=== PATIENT | male | born 2000 | race Caucasian/White ===

== ENCOUNTER 2020-04-19 22:45 | Emergency (ER) | payer OTHER ==
--- NOTE | 2020-04-19 23:15 | ED Physician Documentation ---
PD HPI LOWER EXT INJURY - Stated complaint Stated Complaint: RT ANKLE PX - Chief complaint Chief Complaint: Trauma Ext - History obtained from History obtained from: Patient, Family - History of Present Illness PD HPI LOW EXT INJURY LOCATION: Right, Ankle Type of injury: Twist Where injury occurred: Home Timing - onset: Today Timing - duration: Minutes Timing - details: Abrupt onset, Still present Improved by: Rest, Immobilization Worsened by: Moving, Palpating Associated symptoms: Swelling. No: Weakness, Numbness Contributing factors: No: Anticoagulated Similar symptoms before: Has not had sx before Recently seen: Not recently seen - Additional information Additional information: Previously well 19-year-old male was jumping on trampoline when he twisted his right ankle. He had a knee inversion injury and has a lot of swelling on the lateral aspect of his ankle. He felt a pop when this happened. He is able to bear weight on this somewhat. He has not sprained his ankle previously Review of Systems Constitutional: denies: Fever Eyes: denies: Decreased vision Ears: denies: Ear pain Nose: denies: Congestion Throat: denies: Sore throat Respiratory: denies: Cough GI: denies: Vomiting PD PAST MEDICAL HISTORY - Past Medical History Past Medical History: Yes Endocrine/Autoimmune: Type 1 diabetes Psych: ADD/ADHD - Past Surgical History Past Surgical History: No - Present Medications Home Medications: Ambulatory Orders Medication Instructions Recorded Confirmed Insulin Lispro [Humalog] 0 unit SQ 09/09/13 12/20/14 Azithromycin 250 mg PO DAILY #6 tablet 12/20/14 - Allergies Allergies/Adverse Reactions: Allergies Allergy/AdvReac Type Severity Reaction Status Date / Time No Known Drug Allergies Allergy Verified 04/19/20 22:49 - Social History Does the pt smoke?: No Smoking Status: Never smoker Does the pt drink ETOH?: No Does the pt have substance abuse?: No - Immunizations Immunizations are current?: Yes - POLST Patient has POLST: No PD ED PE NORMAL - Vitals Vital signs reviewed: Yes (normal ) - General General: Alert and oriented X 3, No acute distress, Well developed/nourished - HEENT HEENT: Atraumatic, PERRL, EOMI - Respiratory Respiratory: No respiratory distress - Derm Derm: Normal color, Warm and dry, No rash - Extremities Extremities: Other (There is swelling point tenderness to the lateral aspect of the ankle over the talofibular ligament.) - Neuro Neuro: Alert and oriented X 3, director data analytics 2-12 intact, No motor deficit, No sensory deficit, Normal speech Eye Opening: Spontaneous Motor: Obeys Commands Verbal: Oriented GCS Score: 15 Results - Vitals Vitals: Vital Signs - 24 hr 04/19/20 22:49 Temperature 36.5 C Heart Rate 67 Respiratory 16 Rate O2 Saturation 99 Oxygen O2 Source Room air PD MEDICAL DECISION MAKING - ED course Complexity details: reviewed results, re-evaluated patient, considered differential, d/w patient, d/w family ED course: 19-year-old male with a sprain of the right ankle a lot of swelling laterally is placed into an Aircast and instructed to wear / for 2 weeks . Departure - Departure Disposition: 01 Home, Self Care Clinical Impression: Ankle sprain Qualifiers: Encounter type: initial encounter Involved ligament of ankle: calcaneofibular ligament Laterality: right Qualified Code(s): S93.411A - Sprain of calcaneofibular ligament of right ankle, initial encounter Condition: Stable Instructions: ED Sprain Ankle W X Ray Follow-Up: GEORGIANA EDWARDS MD [Primary Care Provider] - Forms: Activity restrictions
--- NOTE | 2020-04-20 08:25 | XRAY Report ---
PROCEDURE: Ankle 3 View RT INDICATIONS: lateral pain swelling twisted TECHNIQUE: 3 views of the ankle were acquired. COMPARISON: None FINDINGS: Bones: No fractures or dislocations. Ankle mortise is normally aligned. No suspicious bony lesions . Soft tissues: There is a moderate tibiotalar joint effusion. Achilles tendon appears normal. Signif icant lateral ankle soft tissue swelling is noted. IMPRESSION: 1. No acute ankle fracture or dislocation. 2. Lateral ankle soft tissue swelling and moderate tibiofibular joint effusion. No discrepancies. Reviewed by: Jonny Rodriguez MD on 04/20/2020 8:24 AM PDT Approved by: Jonny Rodriguez MD on 04/20/2020 8:24 AM PDT Station ID: [id number]
== END 2020-04-20 00:03 | disposition home or self-care (01) ==
LOC: ED 22:45
DX: S93.411A Sprain of calcaneofibular ligament of right ankle, initial encounter (principal); X50.1XXA Overexertion from prolonged static or awkward postures, initial encounter; Y93.44 Activity, trampolining; Y92.009 Unspecified place in unspecified non-institutional (private) residence as the place of occurrence of the external cause; E10.9 Type 1 diabetes mellitus without complications
CPT/HCPCS: 99282; 99283

== ENCOUNTER 2023-01-17 08:18 | Outpatient (CLI) | payer MEDICAID | END 2023-01-17 23:59 | disposition critical access hospital (66) | LOC: EMS 08:18 | DX: R10.84 Generalized abdominal pain (principal); R14.0 Abdominal distension (gaseous); E10.65 Type 1 diabetes mellitus with hyperglycemia; R00.0 Tachycardia, unspecified | CPT/HCPCS: A0425; A0427; A0999 ==

== ENCOUNTER 2023-01-17 08:37 | Inpatient (IN) | payer MEDICAID, OTHER ==
[2023-01-17] MEDS ORDERED: INSULIN REGULAR HUMAN 100 UNIT/1 ML 10 ML MDV IVP STA (08:46)
[2023-01-17] MEDS ORDERED: HYDROmorphone 1 MG/ML CARPUJECT IVP STA ×3 (08:46→13:01)
[2023-01-17] MEDS ORDERED: ONDANSETRON 4 MG/2 ML VIAL IVP STA (08:46)
[2023-01-17] MEDS ORDERED: SODIUM CHLORIDE 0.9% 1,000 ML IV STA ×4 (08:46→13:01)
[2023-01-17 09:00] LABS: BASOPHILS # (AUTO) 0.2 10^3/uL (0.0-0.1); BASOPHILS % (AUTO) 0.9 %; EOSINOPHILS % (AUTO) 0.1 %; HCT - HEMATOCRIT 48.8 % (42.0-52.0); HGB - HEMOGLOBIN 16.1 g/dL (14.0-18.0); LYMPHOCYTES # (AUTO) 3.3 10^3/uL (1.5-3.5); LYMPHOCYTES % (AUTO) 16.6 %; MEAN CORPUSCULAR HEMOGLOBIN 29.7 pg (27.0-31.0); MEAN CORPUSCULAR VOLUME 89.9 fL (80.0-94.0); MONOCYTES # (AUTO) 1.2 10^3/uL (0.0-1.0); MONOCYTES % (AUTO) 5.8 %; NEUTROPHILS # (AUTO) 14.9 10^3/uL (1.5-6.6); NEUTROPHILS % (AUTO) 75.1 %; PLT - PLATELET COUNT 422 10^3/uL (130-450); RED BLOOD COUNT 5.43 10^6/uL (4.70-6.10); RED CELL DISTRIBUTION WIDTH 13.4 % (12.0-15.0); WHITE BLOOD COUNT 19.8 x10^3/uL (4.8-10.8)
[2023-01-17 09:05] LABS: VBG BASE EXCESS -25.1 mmol/L (-2 - +2); VBG HCO3 4.6 mmol/L (23-28); VBG PCO2 19.2 mmHg (41-51); VBG PO2 82.4 mmHg (25-47); VBG TOTAL CO2 5.2 mmol/L (24-29)
[2023-01-17 09:06] LABS: VBG OXYGEN SATURATION 93.3 % (60-80)
[2023-01-17 09:17] LABS: KETONES, SERUM (ACETEST) NEGATIVE (NEGATIVE)
[2023-01-17 09:18] LABS: ALBUMIN 4.7 g/dL (3.2-5.5); ALBUMIN/GLOBULIN RATIO 1.4 (1.0-2.2); ALKALINE PHOSPHATASE 127 IU/L (42-121); ALT ALANINE AMINOTRANSFERASE 21 IU/L (10-60); AST ASPARTATE AMINOTRANSFERASE 16 IU/L (10-42); BILIRUBIN,TOTAL 2.1 mg/dL (0.2-1.0); BUN - BLOOD UREA NITROGEN 14 mg/dL (6-20); CALCIUM 8.9 mg/dL (8.5-10.3); CHLORIDE 101 mmol/L (101-111); CREATININE 1.6 mg/dL (0.6-1.2); GFR - MDRD 54 (>89); LIPASE 21 U/L (22-51); POTASSIUM 4.2 mmol/L (3.5-5.0); SODIUM 139 mmol/L (135-145)
[2023-01-17 09:22] LABS: CARBON DIOXIDE - CO2 < 6 mmol/L (21-32); GLUCOSE 549 mg/dL (70-100)
[2023-01-17] MEDS ORDERED: INSULIN REGULAR IN 0.9 % NS 100 UNIT/100 ML BAG IV STA (09:30)
--- NOTE | 2023-01-17 09:34 | ED Physician Documentation ---
History of Present Illness - Stated complaint Stated Complaint: ABD PX/CONSTIPATION - Chief complaint Chief Complaint: General - History obtained from History obtained from: Patient, EMS - Additonal information Additional information: The patient is brought to the emergency department by EMS for chief complaint of generally feeling unwell. He states that he has felt unwell for about a week and has thought he might be in DKA. He states that he has felt nauseated and as though he is "not absorbing his fluid intake". He has been rationing his insulin, he states, because he does not have insurance and does not want to Run out. He states his blood sugars have been running very high at home he is also noticed that his breathing is faster and his stomach just feels upset. No other complaints at this time. No fevers. PD PAST MEDICAL HISTORY - Past Medical History Past Medical History: Yes Endocrine/Autoimmune: Type 1 diabetes Psych: ADD/ADHD - Past Surgical History Past Surgical History: No - Present Medications Home Medications: Ambulatory Orders Medication Instructions Recorded Confirmed Insulin Aspart [Novolog Flexpen] 60 unit SQ DAILY 01/17/23 01/17/23 Insulin Detemir [Levemir Flexpen] 50 unit SQ HS 01/17/23 01/17/23 - Allergies Allergies/Adverse Reactions: Allergies Allergy/AdvReac Type Severity Reaction Status Date / Time No Known Drug Allergies Allergy Verified 01/17/23 08:49 - Social History Does the pt smoke?: No Smoking Status: Never smoker Does the pt drink ETOH?: No Does the pt have substance abuse?: No - Immunizations Immunizations are current?: Yes - POLST Patient has POLST: No PD ED PE NORMAL - Vitals Vital signs reviewed: Yes - General General: Alert and oriented X 3, Well developed/nourished, Other (The patient appears anxious and is exhibiting supply coordinator small respirations, as well.) - HEENT HEENT: Atraumatic, PERRL, EOMI, Moist mucous membranes - Neck Neck: Supple, no meningeal sign - Cardiac Cardiac: No murmur, Strong equal pulses, Other (Tachycardic rate regular rhythm) - Respiratory Respiratory: Clear bilaterally, Other (Deep, rapid respirations, consistent with supply coordinator small.) - Abdomen Abdomen: Soft, Non tender, Non distended - Derm Derm: Normal color, Warm and dry, No rash - Extremities Extremities: No deformity, No edema - Neuro Neuro: Alert and oriented X 3, Other (Alert and conversant, grossly intact.) - Psych Psych: Normal mood, Normal affect Results - Vitals Vitals: Oxygen O2 Source Room air - EKG (time done) 0904 EKG releavant findings:: EKG personally interpreted by author of this note. Relevant findings are: Rate: Rate (enter#) (122) Rhythm: Sinus tachycardia, LAE Wilson: Normal Intervals: Normal [place] QRS: Normal Ischemia: Normal ST segments Compare to prior EKG: Old EKG unavailable Computer interpretation: Agree with computer - Labs Labs: Laboratory Tests 01/17/23 01/17/23 01/17/23 08:47 08:47 08:47 WBC 19.8 H RBC 5.43 Hgb 16.1 Hct 48.8 MCV 89.9 MCH 29.7 MCHC 33.0 RDW 13.4 Plt Count 422 MPV 11.0 Neut # (Auto) 14.9 H Lymph # (Auto) 3.3 [place] # (Auto) 1.2 H Eos # (Auto) 0.0 Baso # (Auto) 0.2 H Absolute Nucleated RBC 0.00 Nucleated RBC % 0.0 VBG pH VBG pCO2 VBG pO2 VBG HCO3 VBG Total CO2 VBG O2 Saturation VBG Base Excess Sodium 139 Potassium 4.2 Chloride 101 Carbon Dioxide < 6 L* Anion Gap 33.0 H BUN 14 Creatinine 1.6 H Estimated GFR (MDRD) 54 L Glucose 549 H* Lactic Acid 6.3 H* Calcium 8.9 Total Bilirubin 2.1 H AST 16 ALT 21 Alkaline Phosphatase 127 H Total Protein 8.0 Albumin 4.7 Globulin 3.3 Albumin/Globulin Ratio 1.4 Lipase 21 L Serum Ketones NEGATIVE 01/17/23 01/17/23 08:47 11:16 WBC RBC Hgb Hct MCV MCH MCHC RDW Plt Count MPV Neut # (Auto) Lymph # (Auto) [place] # (Auto) Eos # (Auto) Baso # (Auto) Absolute Nucleated RBC Nucleated RBC % VBG pH 7.000 L VBG pCO2 19.2 L VBG pO2 82.4 H VBG HCO3 4.6 L VBG Total CO2 5.2 L VBG O2 Saturation 93.3 H VBG Base Excess -25.1 L Sodium 140 Potassium 4.1 Chloride 108 Carbon Dioxide 7 L* Anion Gap 25.0 H BUN 13 Creatinine 1.3 H Estimated GFR (MDRD) 68 L Glucose 376 H Lactic Acid Calcium 7.9 L Total Bilirubin AST ALT Alkaline Phosphatase Total Protein Albumin Globulin Albumin/Globulin Ratio Lipase Serum Ketones PD Medical Decision Making - ED course Complexity details: reviewed results, re-evaluated patient, considered differential, d/w patient ED course: The patient was immediately started on 2 L of IV fluid and given an IV bolus of insulin. He was worked up with laboratory studies, Including CBC, ER abdominal panel, VBG, and lactic acid level. All of these were ordered and reviewed by me. His lactate was 6.3 glucose 549, pH 7.0, bicarb less than 6. Anion gap was 33. He was started on an insulin drip at a rate of 0.1 mg/kg/h. I discussed the case with Dr. Vieyra, who is on-call for hospitalist service, and she did agree to accept the patient for admission. The patient's repeat BMP did show his glucose coming down and anion gap narrowing. - Critical Care Time(min): 40 Comments: Critical care was necessary, secondary to high probability of imminent and life- threatening decline, secondary to severe metabolic and acid-base derangement and hyperglycemia. Time Includes: Direct patient care, Review records, Reassess patient, Document care, Coordinate care, Medical consult, See progress note Data interpretation: Labs, Pulse ox, ABG, Cardiac output, See progress note Departure - Departure Disposition: 66 [facility] DC/Xfer Clinical Impression: Hyperglycemia, High anion gap metabolic acidosis Condition: Critical Discharge Date/Time: 01/17/23 14:45
[2023-01-17] MEDS ORDERED: iohexoL-300 100 ML VIAL ONE (10:21)
--- NOTE | 2023-01-17 11:06 | CT Report ---
PROCEDURE: ABDOMEN/PELVIS W INDICATIONS: abd pain/nausea/sepsis CONTRAST: 100ml Omnipaque 300 TECHNIQUE: After the administration of IV contrast, 5 mm thick sections acquired from the diaphragms to the symp hysis. 5 mm thick coronal and sagittal reformats were acquired. For radiation dose reduction, the f ollowing was used: automated exposure control, adjustment of mA and/or kV according to patient size. COMPARISON: None. FINDINGS: Image quality: Excellent. ABDOMEN: Lung bases: Lung bases are clear. Heart size is normal. Solid organs: Liver and spleen are normal in size. Moderate hepatic steatosis is seen, no discrete h epatic lesion. No discrete splenic lesion. Gallbladder is within normal limits. Biliary system is no n dilated. Pancreas enhances normally. No adrenal nodules. Kidneys demonstrate normal size and enh ancement, without hydronephrosis. Peritoneum and bowel: There is no bowel obstruction. Retrocecal appendix is noted and is normal in si ze and appearance.. No gastric wall thickening. Distal ileal wall thickening is seen extending to the ileocecal junction with mild adjacent mesenteric fat stranding. No gross colonic wall thickening. No abscess collection. No free fluid of free air. Nodes and vessels: Small lymph nodes are seen in lower abdominal mesentery measures up to 4 to 5 mm in size and. No retroperitoneal or mesenteric adenopathy by size criteria. Aorta and inferior vena c vielka are normal in size. Miscellaneous: Wall umbilical hernia is seen containing fat only. PELVIS: Genitourinary: Bladder wall thickness is normal. Miscellaneous: No inguinal hernias or adenopathy. Bones: No suspicious bony lesions. No vertebral body compression fractures. IMPRESSION: 1. Mild terminal ileal wall thickening concerning for low-grade infectious or inflammatory ileitis. N ormal appendix. No bowel obstruction. No abscess collection. No free fluid of free air. 2. Small lower abdominal mesenteric lymph nodes which can be seen associated with mesenteric adenitis suggest clinical correlation. 3. Moderate hepatic steatosis, no discrete hepatic lesion. Reviewed by: Jonny Rodriguez MD on 01/17/2023 10:05 AM EDGAR Approved by: Jonny Rodriguez MD on 01/17/2023 10:05 AM AKKENDRICK Station ID: [id number]
[2023-01-17 11:35] LABS: CALCIUM 7.9 mg/dL (8.5-10.3); CREATININE 1.3 mg/dL (0.6-1.2); POTASSIUM 4.1 mmol/L (3.5-5.0)
[2023-01-17] MEDS ORDERED: INSULIN REGULAR HUMAN 100 UNIT/1 ML 10 ML MDV SUBQ ONE (14:16)
[2023-01-17] MEDS ORDERED: iohexoL-300 100 ML VIAL IVP ONE (14:31)
--- NOTE | 2023-01-17 14:47 | HISTORY & PHYSICAL EXAMINATION ---
Chief Complaint - Chief Complaint Chief Complaint: Abd pain, nausea, fatigue History of Present Illness - Admitted From Admitted From:: ED - History Obtained From History obtained from: ED provider, the patient and the patient's mother at bedside - History of Present Illness HPI Comment/Other: This is a 22-year-old white male with a history of ADHD, who was weaned off his ADHD meds in his late teens, and has type 1 diabetes diagnosed at age 8. The patient has been trying to stretch out what insulin he has at home so that he does not run out, since his family lost their Health Insurance and he was waiting to start a job and have his own health insurance. Over the last 1-2 weeks he started to notice increased urination along with upper and R-sided abdominal pain and some nausea no vomiting and then he lost his appetite and was constipated, and himself was worried that he was starting to go into DKA. His abd pain felt worse today than the previous week and called an ambulance and was brought to the ER. He was found to be in DKA with a serum pH of 7.0, elevated lactic acid of 6.4, elevated anion gap of 33, and elevated glucose of 549. He was started on iv saline and an insulin drip. He underwent a CT of the abdomen which shows ileitis. The ED provider spoke to me regarding managing this young man going forward. The patient is being admitted to the ICU to manage DKA and ileitis. History - Past Medical History Cardiovascular: reports: None Respiratory: reports: None Neuro: reports: None Endocrine/Autoimmune: reports: Type 1 diabetes GI: reports: None : reports: None HEENT: reports: None Psych: reports: ADD/ADHD Musculoskeletal: reports: None Derm: reports: None MRSA Hx?: No - Family & Social History Family History: Mother: Alive and Well, Father: Alive and Well, Sister: Alive and Well Family History Comment/Other: He is the youngest of 3 children, his 2 older sisters do not have diabetes. Diabetes runs on the father side of the family. Living arrangement: At home Living Situation: With family Social History Notes: He has never smoked cigarettes, he has tried marijuana but does not use it routinely. He has a rare alcoholic drink. He lives with both parents and his great aunt and his 4 nieces (both of his older sisters have each had 2 children but the pt's mother is raising all 4 young girls). He has not had a job in about 3 years. 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 - Substance History Use: Uses substance without health or social issues: NONE - POLST Patient has POLST: No Meds/Allgy - Home Medications Home Medications: Ambulatory Orders Medication Instructions Recorded Confirmed Insulin Lispro [Humalog] 0 unit SQ 09/09/13 12/20/14 Azithromycin 250 mg PO DAILY #6 tablet 12/20/14 - Allergies Allergies/Adverse Reactions: Allergies Allergy/AdvReac Type Severity Reaction Status Date / Time No Known Drug Allergies Allergy Verified 01/17/23 08:49 Review of Systems - Constitutional Constitutional: reports: Fatigue, Chills, Poor appetite - Gastrointestinal Gastrointestinal: reports: Abdominal pain, Constipation, Nausea, Reflux/heartburn - Endocrine Endocrine: reports: Polyuria - All Other Systems All Other Systems: reports: Reviewed and negative Exam - Vital Signs Vital Signs: Vital Signs x48h Temp Pulse Resp BP Pulse Ox 01/17/23 14:30 118 H 24 109/69 98 01/17/23 13:30 123 H 22 125/74 99 01/17/23 13:00 123 H 24 132/81 H 100 01/17/23 12:30 126 H 23 128/80 99 01/17/23 12:00 121 H 24 135/90 H 99 01/17/23 11:30 125 H 16 123/79 100 01/17/23 11:04 152 H 28 H 140/79 H 99 01/17/23 10:49 138 H 35 H 141/77 H 98 01/17/23 10:16 130 H 29 H 131/77 H 100 01/17/23 09:33 126 H 22 125/68 100 01/17/23 09:00 123 H 35 H 149/60 H 97 01/17/23 08:43 36.8 C 145 H 28 H 149/80 H 96 - Physical Exam General Appearance: positive: No acute distress, Alert Eyes Bilateral: positive: EOMI, Other (Wide set eyes) ENT: positive: No signs of dehydration Neck: positive: Nml inspection, No JVD Respiratory: positive: No respiratory distress, Breath sounds nml Cardiovascular: positive: Regular rate & rhythm, No murmur Abdomen: positive: Non-tender, Nml bowel sounds, No distention Skin: positive: Warm, Dry Extremities: positive: Non-tender, No pedal edema Neurologic/Psychiatric: positive: Oriented x3, Motor nml Conclusion/Plan - Problem List (1) DKA (diabetic ketoacidosis) Conclusion/Plan: The lower doses of Insulin (done to ration his meds) plus the finding of ileitis, are likely to be the reasons he went into DKA Plan: Admit to the ICU Start DKA protocol including Insulin drip, iv saline hydration and frequent serum checks of his pH, glucose, serum ketones. (2) Ileitis Conclusion/Plan: He does have an elevated white count of 19.8. He does describe right-sided symptoms worsening slowly over the past 1 to 2 weeks. Plan: We will obtain blood culture Follow WBC daily Start empiric treatment with IV Cipro and IV Flagyl Obtain general surgery consultation further recommendations (3) Patient's noncompliance with other medical treatment and regimen due to financial hardship Conclusion/Plan: Patient admitted and mother at bedside supported that this patient was rationing his insulin in order to stretch it out until he had a job with health insurance that would pay part of the cost of insulin Plan: We will update social work, since the patient would like to apply for [facility] - Lab Results Fish Bones: 01/17/23 08:47 01/17/23 15:30 - Diagnostic Imaging Results Diagnostic Imaging Results: positive: Final report reviewed - Other Other Results/Comments: Attestation: The patient is expected to be discharged or transferred to another facility within 96 hours: Yes.
[2023-01-17 14:51] LABS: VBG BASE EXCESS -22.8 mmol/L (-2 - +2); VBG HCO3 5.9 mmol/L (23-28); VBG OXYGEN SATURATION 85.6 % (60-80); VBG PCO2 21.3 mmHg (41-51); VBG PO2 52.3 mmHg (25-47); VBG TOTAL CO2 6.5 mmol/L (24-29)
[2023-01-17 14:52] LABS: VBG PH 7.059 (7.31-7.41)
[2023-01-17] MEDS ORDERED: SODIUM CHLORIDE 0.9% 1,000 ML IV SCH (15:00)
[2023-01-17] MEDS ORDERED: metroNIDAZOLE 500 MG/100 ML 500 MG/100 ML BAG IV SCH (15:00)
[2023-01-17] MEDS ORDERED: INSULIN REGULAR IN 0.9 % NS 100 UNIT/100 ML BAG IV SCH (15:00)
[2023-01-17 15:02] LABS: BUN - BLOOD UREA NITROGEN 11 mg/dL (6-20); CALCIUM 8.2 mg/dL (8.5-10.3); CARBON DIOXIDE - CO2 6 mmol/L (21-32); CHLORIDE 115 mmol/L (101-111); CREATININE 1.2 mg/dL (0.6-1.2); GFR - MDRD 75 (>89); GLUCOSE 204 mg/dL (70-100); MAGNESIUM 2.5 mg/dL (1.7-2.8); SODIUM 142 mmol/L (135-145)
[2023-01-17 15:03] LABS: KETONES, SERUM (ACETEST) MODERATE (NEGATIVE)
[2023-01-17] MEDS: DEXTROSE 5%-0.9% NACL 1,000 ML IV SCH (15:28)
[2023-01-17 15:44] LABS: KETONES, SERUM (ACETEST) MODERATE (NEGATIVE)
[2023-01-17 15:45] LABS: BUN - BLOOD UREA NITROGEN 10 mg/dL (6-20); CALCIUM 8.2 mg/dL (8.5-10.3); CHLORIDE 115 mmol/L (101-111); CREATININE 1.2 mg/dL (0.6-1.2); GFR - MDRD 75 (>89); GLUCOSE 154 mg/dL (70-100); MAGNESIUM 2.6 mg/dL (1.7-2.8); POTASSIUM 3.8 mmol/L (3.5-5.0); SODIUM 140 mmol/L (135-145)
[2023-01-17 15:46] LABS: CARBON DIOXIDE - CO2 6 mmol/L (21-32)
[2023-01-17] MEDS: CIPROFLOXACIN 400 MG/200 ML 400 MG/200 ML BAG IV SCH (15:51)
[2023-01-17] MEDS: SODIUM CHLORIDE FLUSH 0.9% 10 ML SYRINGE IVP SCH (15:57)
[2023-01-17] MEDS: metroNIDAZOLE 500 MG/100 ML 500 MG/100 ML BAG IV SCH ×2 (16:58→23:08)
[2023-01-17] MEDS: INSULIN REGULAR HUMAN 100 UNIT in SODIUM CHLORIDE 0.9% 100ML 99 ML IV SCH (17:00)
[2023-01-17] MEDS: POTASSIUM CHLOR 10 MEQ/100 ML 10 MEQ/100 ML BAG IV SCH ×2 (17:15→18:07)
--- NOTE | 2023-01-17 17:23 | PHARMACY PROGRESS NOTE ---
- Best Possible Medication History Admit Date and Time: 01/17/23 1411 Processed by: Pharmacy Medication History completed: Yes Patient Interview: Completed Secondary Source(s): Other family member, Insurance records (Interviewed pt while mother was in the room. Pt has been on the keto diet for the past couple of months. He only eats either breakfast or dinner. Levemir prescription is for 50 units HS, but he uses 25-35 depending on how he feels. When he eats then 5-10 units of the Novolog Flexpen. Prior to that ) As the person ultimately responsible for medication therapy, providers are able to order a medication from an existing home medication list in [facility] via the "Reconcile Routine" prior to Confirmation of that medication by cad application support specialist. Such practice is discouraged except when the physician, in their clinical judgment, deems that a medical need exists for a medication without regard to previous use.
[2023-01-17 17:45] LABS: KETONES, SERUM (ACETEST) LARGE (NEGATIVE)
[2023-01-17 17:50] LABS: BUN - BLOOD UREA NITROGEN 9 mg/dL (6-20); CALCIUM 8.3 mg/dL (8.5-10.3); CHLORIDE 113 mmol/L (101-111); CREATININE 1.2 mg/dL (0.6-1.2); GFR - MDRD 75 (>89); GLUCOSE 146 mg/dL (70-100); MAGNESIUM 2.3 mg/dL (1.7-2.8); POTASSIUM 3.7 mmol/L (3.5-5.0); SODIUM 140 mmol/L (135-145)
[2023-01-17 17:54] LABS: CARBON DIOXIDE - CO2 8 mmol/L (21-32)
--- NOTE | 2023-01-17 18:12 | CONSULTATION NOTE ---
Surgery Consult - Admit Date Hospital Admission Date: 01/17/23 - Consult Date Consult Date: 01/17/23 Requesting Provider: Dr. Catie Vieyra - Chief Complaint Chief Complaint: Asked to evaluate ileitis seen on CT scan. - Home Meds/Allergies Home Medications: Patient History Medication Instructions Recorded Confirmed Insulin Aspart [Novolog Flexpen] 60 unit SQ DAILY 01/17/23 01/17/23 Insulin Detemir [Levemir Flexpen] 50 unit SQ HS 01/17/23 01/17/23 Allergies/Adverse Reactions: Allergies Allergy/AdvReac Type Severity Reaction Status Date / Time No Known Drug Allergies Allergy Verified 01/17/23 08:49 - Vital Signs Vital Signs: Last Vital Signs Temp 98.7 C H 01/17/23 15:37 Pulse 100 01/17/23 18:00 Resp 19 01/17/23 18:00 BP 119/76 01/17/23 18:00 Pulse Ox 98 01/17/23 18:00 O2 Flow Rate Intake & Output: Intake & Output 01/14/23 01/15/23 01/16/23 01/17/23 23:59 23:59 23:59 23:59 Intake Total 4400.000 Output Total 550 Balance 3850.000 - Lab Results Result Diagrams: 01/17/23 08:47 01/17/23 17:33 - Consultation Note Consultation Note: I was asked to evaluate this patient for ileitis seen on CT scan. He as admitted ostensibly for DKA and CT scan showed some terminal ileitis with sparing of the appendix. I reviewed the CT scan as well as the patient's labs and vitals. On physical examination he has no abdominal pain whatsoever. Plan: There are no indications for surgical intervention. This should resolve with time and tight control of his sugars (good evidence that sugars over 200 severly impee the function of the WBCs. I asked the patient to let me know if ther are any changes in his symptoms and to contact me with any surgical questions or concerns. He stated that he would. I will follow peripherally in case surgical issues arise but I think the patient will chart continued improvement. Thank you very much for the opportunity to participate in this gentleman's care.
[2023-01-17 18:14] LABS: BILIRUBIN,URINE NEGATIVE (NEGATIVE); GLUCOSE, URINE (UA) NEGATIVE (NEGATIVE); KETONES,URINE (UA) >=80 mg/dL (NEGATIVE); LEUKOCYTE ESTERASE, URINE NEGATIVE (NEGATIVE); NITRITE,URINE NEGATIVE (NEGATIVE); OCCULT BLOOD,URINE SMALL (NEGATIVE); PH,URINE 5.5 PH (5.0-7.5); PROTEIN,URINE TRACE mg/dL (NEGATIVE); UROBILINOGEN,URINE 0.2 (NORMAL) E.U./dL (NORMAL)
[2023-01-17 18:16] LABS: CLARITY,URINE CLEAR (CLEAR)
[2023-01-17 18:23] LABS: BACTERIA,URINE Rare /HPF (None Seen); CASTS, URINE 0-2 Hyaline Casts /LPF; MUCUS,URINE Few Strands; RBC,URINE 0-5 /HPF (0-5); SQUAMOUS EPITHELIAL CELL,UR RARE Squamous (<= Few); WBC,URINE 0-3 /HPF (0-3)
[2023-01-17 19:50] LABS: VBG BASE EXCESS -14.6 mmol/L (-2 - +2); VBG HCO3 10.4 mmol/L (23-28); VBG OXYGEN SATURATION 96.5 % (60-80); VBG PCO2 23.8 mmHg (41-51); VBG PH 7.259 (7.31-7.41); VBG PO2 78.4 mmHg (25-47); VBG TOTAL CO2 11.1 mmol/L (24-29)
[2023-01-17] MEDS: FAMOTIDINE 20 MG/2 ML VIAL IVP SCH (21:15)
[2023-01-17 22:58] LABS: CALCIUM 8.3 mg/dL (8.5-10.3); CREATININE 0.9 mg/dL (0.6-1.2); POTASSIUM 3.6 mmol/L (3.5-5.0)
[2023-01-18] MEDS: POTASSIUM CHLOR 10 MEQ/100 ML 10 MEQ/100 ML BAG IV SCH ×8 (00:51→23:15)
[2023-01-18] MEDS: SODIUM CHLORIDE FLUSH 0.9% 10 ML SYRINGE IVP SCH ×3 (00:52→16:57)
[2023-01-18] MEDS: DEXTROSE 5%-0.9% NACL 1,000 ML IV SCH ×3 (01:40→21:11)
[2023-01-18 03:08] LABS: CALCIUM 8.3 mg/dL (8.5-10.3); CREATININE 0.8 mg/dL (0.6-1.2); POTASSIUM 3.9 mmol/L (3.5-5.0)
[2023-01-18] MEDS: CIPROFLOXACIN 400 MG/200 ML 400 MG/200 ML BAG IV SCH ×2 (03:16→16:10)
[2023-01-18 05:10] LABS: BASOPHILS % (AUTO) 0.4 %; EOSINOPHILS % (AUTO) 0.2 %; HCT - HEMATOCRIT 40.9 % (42.0-52.0); HGB - HEMOGLOBIN 13.9 g/dL (14.0-18.0); LYMPHOCYTES # (AUTO) 2.3 10^3/uL (1.5-3.5); LYMPHOCYTES % (AUTO) 21.6 %; MEAN CORPUSCULAR HEMOGLOBIN 29.7 pg (27.0-31.0); MEAN CORPUSCULAR VOLUME 87.4 fL (80.0-94.0); MEAN PLATELET VOLUME 10.4 fL (7.4-11.4); MONOCYTES # (AUTO) 0.9 10^3/uL (0.0-1.0); MONOCYTES % (AUTO) 8.2 %; NEUTROPHILS # (AUTO) 7.5 10^3/uL (1.5-6.6); NEUTROPHILS % (AUTO) 69.2 %; PLT - PLATELET COUNT 273 10^3/uL (130-450); RED BLOOD COUNT 4.68 10^6/uL (4.70-6.10); RED CELL DISTRIBUTION WIDTH 13.7 % (12.0-15.0); WHITE BLOOD COUNT 10.8 x10^3/uL (4.8-10.8)
[2023-01-18 05:16] LABS: CALCIUM, IONIZED 1.16 mmol/L (1.15-1.33); VBG PH 7.269 (7.31-7.41)
[2023-01-18 05:21] LABS: BUN - BLOOD UREA NITROGEN 7 mg/dL (6-20); CALCIUM 8.2 mg/dL (8.5-10.3); CARBON DIOXIDE - CO2 15 mmol/L (21-32); CHLORIDE 113 mmol/L (101-111); CREATININE 0.9 mg/dL (0.6-1.2); GFR - MDRD 105 (>89); GLUCOSE 190 mg/dL (70-100); MAGNESIUM 2.2 mg/dL (1.7-2.8); POTASSIUM 3.7 mmol/L (3.5-5.0); SODIUM 139 mmol/L (135-145)
[2023-01-18 05:24] LABS: KETONES, SERUM (ACETEST) SMALL (NEGATIVE)
[2023-01-18] MEDS: INSULIN REGULAR HUMAN 100 UNIT in SODIUM CHLORIDE 0.9% 100ML 99 ML IV SCH ×3 (06:29→21:58)
[2023-01-18] MEDS: POTASSIUM PHOSPHATE 15 MMOL in SODIUM CHLORIDE 0.9% 250 ML IV SCH ×2 (07:29→11:23)
[2023-01-18] MEDS: metroNIDAZOLE 500 MG/100 ML 500 MG/100 ML BAG IV SCH ×3 (07:29→23:15)
[2023-01-18] MEDS: FAMOTIDINE 20 MG/2 ML VIAL IVP SCH ×2 (08:32→21:11)
[2023-01-18 10:46] LABS: CALCIUM 8.4 mg/dL (8.5-10.3); CREATININE 0.8 mg/dL (0.6-1.2); POTASSIUM 3.7 mmol/L (3.5-5.0)
[2023-01-18 12:09] LABS: ESTIMATED AVERAGE GLUCOSE 214 mg/dL (70-100); HEMOGLOBIN A1c% 9.1 % (4.27-6.07)
[2023-01-18 13:07] LABS: VBG BASE EXCESS -8.2 mmol/L (-2 - +2); VBG HCO3 14.3 mmol/L (23-28); VBG PCO2 23.2 mmHg (41-51); VBG PH 7.407 (7.31-7.41); VBG PO2 191.8 mmHg (25-47)
[2023-01-18 16:10] LABS: POTASSIUM 3.2 mmol/L (3.5-5.0)
[2023-01-18] MEDS ORDERED: POTASSIUM PHOSPHATE 21 MMOL in SODIUM CHLORIDE 0.9% 250 ML IV ONE (16:14)
[2023-01-18] MEDS ORDERED: POTASSIUM CHLOR 10 MEQ/100 ML 10 MEQ/100 ML BAG IV SCH (17:00)
--- NOTE | 2023-01-18 17:41 | PROVIDER PROGRESS NOTE ---
Subjective - Subjective Pt reports feeling: Improved (No pain in right abdomen and he is hungry. Clear liquid diet was tried and it did not cause increase in pain) Objective - Vital Signs/Intake & Output Vital Signs: Vital Signs Pulse Resp BP Pulse Ox 01/18/23 17:00 79 16 111/89 H 99 01/18/23 16:00 73 16 109/86 H 98 01/18/23 15:00 99 22 121/84 H 01/18/23 14:00 84 15 112/81 H 97 Intake & Output: Intake & Output 01/15/23 01/16/23 01/17/23 01/18/23 23:59 23:59 23:59 23:59 Intake Total 4653.762 4774.594 Output Total 550 1975 Balance 4103.762 2799.594 - Objective General Appearance: positive: No acute distress, Alert Eyes Bilateral: positive: Normal inspection, EOMI Eyes: OU Other (Has very wide set eyes) ENT: positive: No signs of dehydration Neck: positive: Nml inspection, No JVD Respiratory: positive: No respiratory distress Cardiovascular: positive: Regular rate & rhythm Abdomen: positive: Non-tender Skin: positive: Warm, Dry Extremities: positive: Non-tender, No pedal edema Neurologic/Psychiatric: positive: Oriented x3 - Lab Results Fish Bones: 01/18/23 04:40 01/18/23 15:56 Other Labs: Lab Results x24hrs 01/18/23 01/18/23 01/18/23 Range/Units 15:56 12:52 12:52 WBC (4.8-10.8) x10^3/uL RBC (4.70-6.10) 10^6/uL Hgb (14.0-18.0) g/dL Hct (42.0-52.0) % MCV (80.0-94.0) fL MCH (27.0-31.0) pg MCHC (32.0-36.0) g/dL RDW (12.0-15.0) % Plt Count (130-450) 10^3/uL MPV (7.4-11.4) fL Neut # (Auto) (1.5-6.6) 10^3/uL Lymph # (Auto) (1.5-3.5) 10^3/uL Ray # (Auto) (0.0-1.0) 10^3/uL Eos # (Auto) (0.0-0.7) 10^3/uL Baso # (Auto) (0.0-0.1) 10^3/uL Absolute Nucleated RBC x10^3/uL Nucleated RBC % /100WBC VBG pH 7.407 (7.31-7.41) VBG pCO2 23.2 L (41-51) mmHg VBG pO2 191.8 H (25-47) mmHg VBG HCO3 14.3 L (23-28) mmol/L VBG Total CO2 15.0 L (24-29) mmol/L VBG O2 Saturation 99.0 H (60-80) % VBG Base Excess -8.2 L (-2 - +2) mmol/L Ionized Calcium (1.15-1.33) mmol/L Sodium (135-145) mmol/L Potassium 3.2 L (3.5-5.0) mmol/L Chloride (101-111) mmol/L Carbon Dioxide (21-32) mmol/L Anion Gap (6-13) BUN (6-20) mg/dL Creatinine (0.6-1.2) mg/dL Estimated GFR (MDRD) (>89) Glucose (70-100) mg/dL Estimat Average Glucose (70-100) mg/dL Hemoglobin A1c % (4.27-6.07) % Lactic Acid (0.5-2.2) mmol/L Calcium (8.5-10.3) mg/dL Phosphorus 1.0 L* (2.5-4.6) mg/dL Magnesium (1.7-2.8) mg/dL Urine Color Urine Clarity (CLEAR) Urine pH (5.0-7.5) PH Ur Specific [place] (1.002-1.030) Urine Protein (NEGATIVE) mg/dL Urine Glucose (UA) (NEGATIVE) mg/dL Urine Ketones (NEGATIVE) mg/dL Urine Occult Blood (NEGATIVE) Urine Nitrite (NEGATIVE) Urine Bilirubin (NEGATIVE) Urine Urobilinogen (NORMAL) E.U./dL Ur Leukocyte Esterase (NEGATIVE) Urine RBC (0-5) /HPF Urine WBC (0-3) /HPF Ur Squamous Epith Cells (<= Few) Urine Bacteria (None Seen) /HPF Urine Casts /LPF Urine Mucus Ur Microscopic Review Urine Culture Comments Serum Ketones SMALL H (NEGATIVE) 01/18/23 01/18/23 01/18/23 Range/Units 10:31 10:31 08:43 WBC (4.8-10.8) x10^3/uL RBC (4.70-6.10) 10^6/uL Hgb (14.0-18.0) g/dL Hct (42.0-52.0) % MCV (80.0-94.0) fL MCH (27.0-31.0) pg MCHC (32.0-36.0) g/dL RDW (12.0-15.0) % Plt Count (130-450) 10^3/uL MPV (7.4-11.4) fL Neut # (Auto) (1.5-6.6) 10^3/uL Lymph # (Auto) (1.5-3.5) 10^3/uL Ray # (Auto) (0.0-1.0) 10^3/uL Eos # (Auto) (0.0-0.7) 10^3/uL Baso # (Auto) (0.0-0.1) 10^3/uL Absolute Nucleated RBC x10^3/uL Nucleated RBC % /100WBC VBG pH (7.31-7.41) VBG pCO2 (41-51) mmHg VBG pO2 (25-47) mmHg VBG HCO3 (23-28) mmol/L VBG Total CO2 (24-29) mmol/L VBG O2 Saturation (60-80) % VBG Base Excess (-2 - +2) mmol/L Ionized Calcium (1.15-1.33) mmol/L Sodium 139 (135-145) mmol/L Potassium 3.7 (3.5-5.0) mmol/L Chloride 110 (101-111) mmol/L Carbon Dioxide 16 L (21-32) mmol/L Anion Gap 13.0 (6-13) BUN 5 L (6-20) mg/dL Creatinine 0.8 (0.6-1.2) mg/dL Estimated GFR (MDRD) 120 (>89) Glucose 193 H (70-100) mg/dL Estimat Average Glucose (70-100) mg/dL Hemoglobin A1c % (4.27-6.07) % Lactic Acid (0.5-2.2) mmol/L Calcium 8.4 L (8.5-10.3) mg/dL Phosphorus (2.5-4.6) mg/dL Magnesium (1.7-2.8) mg/dL Urine Color Urine Clarity (CLEAR) Urine pH (5.0-7.5) PH Ur Specific [place] (1.002-1.030) Urine Protein (NEGATIVE) mg/dL Urine Glucose (UA) (NEGATIVE) mg/dL Urine Ketones (NEGATIVE) mg/dL Urine Occult Blood (NEGATIVE) Urine Nitrite (NEGATIVE) Urine Bilirubin (NEGATIVE) Urine Urobilinogen (NORMAL) E.U./dL Ur Leukocyte Esterase (NEGATIVE) Urine RBC (0-5) /HPF Urine WBC (0-3) /HPF Ur Squamous Epith Cells (<= Few) Urine Bacteria (None Seen) /HPF Urine Casts /LPF Urine Mucus Ur Microscopic Review Urine Culture Comments Serum Ketones SMALL H SMALL H (NEGATIVE) 01/18/23 01/18/23 01/18/23 Range/Units 04:40 04:40 04:40 WBC (4.8-10.8) x10^3/uL RBC (4.70-6.10) 10^6/uL Hgb (14.0-18.0) g/dL Hct (42.0-52.0) % MCV (80.0-94.0) fL MCH (27.0-31.0) pg MCHC (32.0-36.0) g/dL RDW (12.0-15.0) % Plt Count (130-450) 10^3/uL MPV (7.4-11.4) fL Neut # (Auto) (1.5-6.6) 10^3/uL Lymph # (Auto) (1.5-3.5) 10^3/uL Ray # (Auto) (0.0-1.0) 10^3/uL Eos # (Auto) (0.0-0.7) 10^3/uL Baso # (Auto) (0.0-0.1) 10^3/uL Absolute Nucleated RBC x10^3/uL Nucleated RBC % /100WBC VBG pH 7.269 L (7.31-7.41) VBG pCO2 (41-51) mmHg VBG pO2 (25-47) mmHg VBG HCO3 (23-28) mmol/L VBG Total CO2 (24-29) mmol/L VBG O2 Saturation (60-80) % VBG Base Excess (-2 - +2) mmol/L Ionized Calcium 1.16 (1.15-1.33) mmol/L Sodium (135-145) mmol/L Potassium (3.5-5.0) mmol/L Chloride (101-111) mmol/L Carbon Dioxide (21-32) mmol/L Anion Gap (6-13) BUN (6-20) mg/dL Creatinine (0.6-1.2) mg/dL Estimated GFR (MDRD) (>89) Glucose (70-100) mg/dL Estimat Average Glucose 214 H (70-100) mg/dL Hemoglobin A1c % 9.1 H (4.27-6.07) % Lactic Acid (0.5-2.2) mmol/L Calcium (8.5-10.3) mg/dL Phosphorus < 1.0 L* (2.5-4.6) mg/dL Magnesium (1.7-2.8) mg/dL Urine Color Urine Clarity (CLEAR) Urine pH (5.0-7.5) PH Ur Specific [place] (1.002-1.030) Urine Protein (NEGATIVE) mg/dL Urine Glucose (UA) (NEGATIVE) mg/dL Urine Ketones (NEGATIVE) mg/dL Urine Occult Blood (NEGATIVE) Urine Nitrite (NEGATIVE) Urine Bilirubin (NEGATIVE) Urine Urobilinogen (NORMAL) E.U./dL Ur Leukocyte Esterase (NEGATIVE) Urine RBC (0-5) /HPF Urine WBC (0-3) /HPF Ur Squamous Epith Cells (<= Few) Urine Bacteria (None Seen) /HPF Urine Casts /LPF Urine Mucus Ur Microscopic Review Urine Culture Comments Serum Ketones (NEGATIVE) 01/18/23 01/18/23 01/18/23 Range/Units 04:40 04:40 02:48 WBC 10.8 (4.8-10.8) x10^3/uL RBC 4.68 L (4.70-6.10) 10^6/uL Hgb 13.9 L (14.0-18.0) g/dL Hct 40.9 L (42.0-52.0) % MCV 87.4 (80.0-94.0) fL MCH 29.7 (27.0-31.0) pg MCHC 34.0 (32.0-36.0) g/dL RDW 13.7 (12.0-15.0) % Plt Count 273 (130-450) 10^3/uL MPV 10.4 (7.4-11.4) fL Neut # (Auto) 7.5 H (1.5-6.6) 10^3/uL Lymph # (Auto) 2.3 (1.5-3.5) 10^3/uL Ray # (Auto) 0.9 (0.0-1.0) 10^3/uL Eos # (Auto) 0.0 (0.0-0.7) 10^3/uL Baso # (Auto) 0.0 (0.0-0.1) 10^3/uL Absolute Nucleated RBC 0.00 x10^3/uL Nucleated RBC % 0.0 /100WBC VBG pH (7.31-7.41) VBG pCO2 (41-51) mmHg VBG pO2 (25-47) mmHg VBG HCO3 (23-28) mmol/L VBG Total CO2 (24-29) mmol/L VBG O2 Saturation (60-80) % VBG Base Excess (-2 - +2) mmol/L Ionized Calcium (1.15-1.33) mmol/L Sodium 139 141 (135-145) mmol/L Potassium 3.7 3.9 (3.5-5.0) mmol/L Chloride 113 H 115 H (101-111) mmol/L Carbon Dioxide 15 L 12 L* (21-32) mmol/L Anion Gap 11.0 14.0 H (6-13) BUN 7 7 (6-20) mg/dL Creatinine 0.9 0.8 (0.6-1.2) mg/dL Estimated GFR (MDRD) 105 120 (>89) Glucose 190 H 148 H (70-100) mg/dL Estimat Average Glucose (70-100) mg/dL Hemoglobin A1c % (4.27-6.07) % Lactic Acid (0.5-2.2) mmol/L Calcium 8.2 L 8.3 L (8.5-10.3) mg/dL Phosphorus (2.5-4.6) mg/dL Magnesium 2.2 (1.7-2.8) mg/dL Urine Color Urine Clarity (CLEAR) Urine pH (5.0-7.5) PH Ur Specific [place] (1.002-1.030) Urine Protein (NEGATIVE) mg/dL Urine Glucose (UA) (NEGATIVE) mg/dL Urine Ketones (NEGATIVE) mg/dL Urine Occult Blood (NEGATIVE) Urine Nitrite (NEGATIVE) Urine Bilirubin (NEGATIVE) Urine Urobilinogen (NORMAL) E.U./dL Ur Leukocyte Esterase (NEGATIVE) Urine RBC (0-5) /HPF Urine WBC (0-3) /HPF Ur Squamous Epith Cells (<= Few) Urine Bacteria (None Seen) /HPF Urine Casts /LPF Urine Mucus Ur Microscopic Review Urine Culture Comments Serum Ketones SMALL H (NEGATIVE) 01/18/23 01/18/23 01/17/23 Range/Units 02:48 00:56 22:44 WBC (4.8-10.8) x10^3/uL RBC (4.70-6.10) 10^6/uL Hgb (14.0-18.0) g/dL Hct (42.0-52.0) % MCV (80.0-94.0) fL MCH (27.0-31.0) pg MCHC (32.0-36.0) g/dL RDW (12.0-15.0) % Plt Count (130-450) 10^3/uL MPV (7.4-11.4) fL Neut # (Auto) (1.5-6.6) 10^3/uL Lymph # (Auto) (1.5-3.5) 10^3/uL Ray # (Auto) (0.0-1.0) 10^3/uL Eos # (Auto) (0.0-0.7) 10^3/uL Baso # (Auto) (0.0-0.1) 10^3/uL Absolute Nucleated RBC x10^3/uL Nucleated RBC % /100WBC VBG pH (7.31-7.41) VBG pCO2 (41-51) mmHg VBG pO2 (25-47) mmHg VBG HCO3 (23-28) mmol/L VBG Total CO2 (24-29) mmol/L VBG O2 Saturation (60-80) % VBG Base Excess (-2 - +2) mmol/L Ionized Calcium (1.15-1.33) mmol/L Sodium 140 (135-145) mmol/L Potassium 3.6 (3.5-5.0) mmol/L Chloride 116 H (101-111) mmol/L Carbon Dioxide 13 L (21-32) mmol/L Anion Gap 11.0 (6-13) BUN 8 (6-20) mg/dL Creatinine 0.9 (0.6-1.2) mg/dL Estimated GFR (MDRD) 105 (>89) Glucose 107 H (70-100) mg/dL Estimat Average Glucose (70-100) mg/dL Hemoglobin A1c % (4.27-6.07) % Lactic Acid (0.5-2.2) mmol/L Calcium 8.3 L (8.5-10.3) mg/dL Phosphorus (2.5-4.6) mg/dL Magnesium (1.7-2.8) mg/dL Urine Color Urine Clarity (CLEAR) Urine pH (5.0-7.5) PH Ur Specific [place] (1.002-1.030) Urine Protein (NEGATIVE) mg/dL Urine Glucose (UA) (NEGATIVE) mg/dL Urine Ketones (NEGATIVE) mg/dL Urine Occult Blood (NEGATIVE) Urine Nitrite (NEGATIVE) Urine Bilirubin (NEGATIVE) Urine Urobilinogen (NORMAL) E.U./dL Ur Leukocyte Esterase (NEGATIVE) Urine RBC (0-5) /HPF Urine WBC (0-3) /HPF Ur Squamous Epith Cells (<= Few) Urine Bacteria (None Seen) /HPF Urine Casts /LPF Urine Mucus Ur Microscopic Review Urine Culture Comments Serum Ketones SMALL H SMALL H (NEGATIVE) 01/17/23 01/17/23 01/17/23 Range/Units 22:44 19:45 19:45 WBC (4.8-10.8) x10^3/uL RBC (4.70-6.10) 10^6/uL Hgb (14.0-18.0) g/dL Hct (42.0-52.0) % MCV (80.0-94.0) fL MCH (27.0-31.0) pg MCHC (32.0-36.0) g/dL RDW (12.0-15.0) % Plt Count (130-450) 10^3/uL MPV (7.4-11.4) fL Neut # (Auto) (1.5-6.6) 10^3/uL Lymph # (Auto) (1.5-3.5) 10^3/uL Ray # (Auto) (0.0-1.0) 10^3/uL Eos # (Auto) (0.0-0.7) 10^3/uL Baso # (Auto) (0.0-0.1) 10^3/uL Absolute Nucleated RBC x10^3/uL Nucleated RBC % /100WBC VBG pH 7.259 L (7.31-7.41) VBG pCO2 23.8 L (41-51) mmHg VBG pO2 78.4 H (25-47) mmHg VBG HCO3 10.4 L (23-28) mmol/L VBG Total CO2 11.1 L (24-29) mmol/L VBG O2 Saturation 96.5 H (60-80) % VBG Base Excess -14.6 L (-2 - +2) mmol/L Ionized Calcium (1.15-1.33) mmol/L Sodium (135-145) mmol/L Potassium (3.5-5.0) mmol/L Chloride (101-111) mmol/L Carbon Dioxide (21-32) mmol/L Anion Gap (6-13) BUN (6-20) mg/dL Creatinine (0.6-1.2) mg/dL Estimated GFR (MDRD) (>89) Glucose (70-100) mg/dL Estimat Average Glucose (70-100) mg/dL Hemoglobin A1c % (4.27-6.07) % Lactic Acid 0.9 (0.5-2.2) mmol/L Calcium (8.5-10.3) mg/dL Phosphorus (2.5-4.6) mg/dL Magnesium (1.7-2.8) mg/dL Urine Color Urine Clarity (CLEAR) Urine pH (5.0-7.5) PH Ur Specific [place] (1.002-1.030) Urine Protein (NEGATIVE) mg/dL Urine Glucose (UA) (NEGATIVE) mg/dL Urine Ketones (NEGATIVE) mg/dL Urine Occult Blood (NEGATIVE) Urine Nitrite (NEGATIVE) Urine Bilirubin (NEGATIVE) Urine Urobilinogen (NORMAL) E.U./dL Ur Leukocyte Esterase (NEGATIVE) Urine RBC (0-5) /HPF Urine WBC (0-3) /HPF Ur Squamous Epith Cells (<= Few) Urine Bacteria (None Seen) /HPF Urine Casts /LPF Urine Mucus Ur Microscopic Review Urine Culture Comments Serum Ketones MODERATE H (NEGATIVE) 01/17/23 01/17/23 01/17/23 Range/Units 19:45 17:33 17:00 WBC (4.8-10.8) x10^3/uL RBC (4.70-6.10) 10^6/uL Hgb (14.0-18.0) g/dL Hct (42.0-52.0) % MCV (80.0-94.0) fL MCH (27.0-31.0) pg MCHC (32.0-36.0) g/dL RDW (12.0-15.0) % Plt Count (130-450) 10^3/uL MPV (7.4-11.4) fL Neut # (Auto) (1.5-6.6) 10^3/uL Lymph # (Auto) (1.5-3.5) 10^3/uL Ray # (Auto) (0.0-1.0) 10^3/uL Eos # (Auto) (0.0-0.7) 10^3/uL Baso # (Auto) (0.0-0.1) 10^3/uL Absolute Nucleated RBC x10^3/uL Nucleated RBC % /100WBC VBG pH (7.31-7.41) VBG pCO2 (41-51) mmHg VBG pO2 (25-47) mmHg VBG HCO3 (23-28) mmol/L VBG Total CO2 (24-29) mmol/L VBG O2 Saturation (60-80) % VBG Base Excess (-2 - +2) mmol/L Ionized Calcium (1.15-1.33) mmol/L Sodium 140 (135-145) mmol/L Potassium 3.7 (3.5-5.0) mmol/L Chloride 113 H (101-111) mmol/L Carbon Dioxide 8 L* (21-32) mmol/L Anion Gap 19.0 H (6-13) BUN 9 (6-20) mg/dL Creatinine 1.2 (0.6-1.2) mg/dL Estimated GFR (MDRD) 75 L (>89) Glucose 146 H (70-100) mg/dL Estimat Average Glucose (70-100) mg/dL Hemoglobin A1c % (4.27-6.07) % Lactic Acid (0.5-2.2) mmol/L Calcium 8.3 L (8.5-10.3) mg/dL Phosphorus (2.5-4.6) mg/dL Magnesium 2.3 (1.7-2.8) mg/dL Urine Color YELLOW Urine Clarity CLEAR (CLEAR) Urine pH 5.5 (5.0-7.5) PH Ur Specific [place] >=1.030 H (1.002-1.030) Urine Protein TRACE (NEGATIVE) mg/dL Urine Glucose (UA) NEGATIVE (NEGATIVE) mg/dL Urine Ketones >=80 H (NEGATIVE) mg/dL Urine Occult Blood SMALL H (NEGATIVE) Urine Nitrite NEGATIVE (NEGATIVE) Urine Bilirubin NEGATIVE (NEGATIVE) Urine Urobilinogen 0.2 (NORMAL) (NORMAL) E.U./dL Ur Leukocyte Esterase NEGATIVE (NEGATIVE) Urine RBC 0-5 (0-5) /HPF Urine WBC 0-3 (0-3) /HPF Ur Squamous Epith Cells RARE Squamous (<= Few) Urine Bacteria Rare (None Seen) /HPF Urine Casts 0-2 Hyaline Casts /LPF Urine Mucus Few Strands Ur Microscopic Review INDICATED Urine Culture Comments NOT INDICATED Serum Ketones MODERATE H LARGE H (NEGATIVE) Assessment/Plan - Problem List (1) DKA (diabetic ketoacidosis) Impression: The lower doses of Insulin (which he was using to ration his meds) plus the finding of ileitis, are likely to be the reasons he went into DKA. Has been on insulin drip for about 24 hours now. Labs were reviewed. He still continues to have serum ketones present. In addition, his VBG pH was still acidotic this a.m. Serum glucose did go up when he started a clear liquid Plan: Remain in the ICU Cont DKA protocol including Insulin drip, iv saline hydration and frequent serum checks of his pH, glucose, serum ketones. (2) Ileitis Conclusion/Plan: He did have an elevated white count of 19.8. He did describe right-sided symptoms worsening slowly over the past 1 to 2 weeks. Labs were reviewed. His blood culture drawn yesterday is neg to date. Appreciate general surgery input Plan: Follow WBC daily Cont empiric treatment with IV Cipro and IV Flagyl We will continue with a clear liquid diet for 24 hours as we continue to give him bowel rest, before advancing diet (3) Patient's noncompliance with other medical treatment and regimen due to financial hardship Conclusion/Plan: Patient admitted and mother at bedside supported that this patient was rationing his insulin in order to stretch it out until he had a job with health insurance that would pay part of the cost of insulin Social work informed me he was accepted onto [facility]
[2023-01-18 21:22] LABS: KETONES, SERUM (ACETEST) SMALL (NEGATIVE)
[2023-01-18 21:29] LABS: BUN - BLOOD UREA NITROGEN < 5 mg/dL (6-20); CALCIUM 8.1 mg/dL (8.5-10.3); CARBON DIOXIDE - CO2 21 mmol/L (21-32); CHLORIDE 111 mmol/L (101-111); CREATININE 0.7 mg/dL (0.6-1.2); GFR - MDRD 140 (>89); GLUCOSE 130 mg/dL (70-100); SODIUM 139 mmol/L (135-145)
[2023-01-18] MEDS: ACETAMINOPHEN 1,000 MG/100 ML 1,000 MG/100 ML BAG IV PRN (22:04)
[2023-01-19] MEDS: SODIUM CHLORIDE FLUSH 0.9% 10 ML SYRINGE IVP SCH ×4 (00:12→20:51)
[2023-01-19] MEDS: POTASSIUM CHLOR 10 MEQ/100 ML 10 MEQ/100 ML BAG IV SCH ×10 (00:20→20:18)
[2023-01-19] MEDS: CIPROFLOXACIN 400 MG/200 ML 400 MG/200 ML BAG IV SCH ×2 (02:35→14:54)
[2023-01-19] MEDS: ONDANSETRON 4 MG/2 ML VIAL IVP PRN ×2 (04:06→22:45)
[2023-01-19 05:02] LABS: BASOPHILS # (AUTO) 0.1 10^3/uL (0.0-0.1); BASOPHILS % (AUTO) 1.1 %; EOSINOPHILS % (AUTO) 0.3 %; HCT - HEMATOCRIT 41.3 % (42.0-52.0); HGB - HEMOGLOBIN 14.1 g/dL (14.0-18.0); LYMPHOCYTES # (AUTO) 2.2 10^3/uL (1.5-3.5); LYMPHOCYTES % (AUTO) 35.1 %; MEAN CORPUSCULAR HEMOGLOBIN 29.5 pg (27.0-31.0); MEAN CORPUSCULAR HGB CONC 34.1 g/dL (32.0-36.0); MEAN CORPUSCULAR VOLUME 86.4 fL (80.0-94.0); MEAN PLATELET VOLUME 10.4 fL (7.4-11.4); MONOCYTES # (AUTO) 0.4 10^3/uL (0.0-1.0); MONOCYTES % (AUTO) 6.7 %; NEUTROPHILS # (AUTO) 3.6 10^3/uL (1.5-6.6); NEUTROPHILS % (AUTO) 56.5 %; PLT - PLATELET COUNT 255 10^3/uL (130-450); RED BLOOD COUNT 4.78 10^6/uL (4.70-6.10); RED CELL DISTRIBUTION WIDTH 13.9 % (12.0-15.0); WHITE BLOOD COUNT 6.3 x10^3/uL (4.8-10.8)
[2023-01-19 05:03] LABS: CALCIUM, IONIZED 1.12 mmol/L (1.15-1.33); VBG PH 7.369 (7.31-7.41)
[2023-01-19 05:21] LABS: BUN - BLOOD UREA NITROGEN < 5 mg/dL (6-20); CALCIUM 8.4 mg/dL (8.5-10.3); CARBON DIOXIDE - CO2 16 mmol/L (21-32); CHLORIDE 104 mmol/L (101-111); CREATININE 0.7 mg/dL (0.6-1.2); GFR - MDRD 140 (>89); GLUCOSE 292 mg/dL (70-100); MAGNESIUM 1.6 mg/dL (1.7-2.8); PHOSPHORUS 1.8 mg/dL (2.5-4.6); POTASSIUM 3.2 mmol/L (3.5-5.0); SODIUM 136 mmol/L (135-145)
[2023-01-19] MEDS ORDERED: MAGNESIUM SULFATE 2 GRAM 2 GM/50 ML BAG IV ONE ×2 (05:55→15:49)
[2023-01-19] MEDS: DEXTROSE 5%-0.9% NACL 1,000 ML IV SCH ×2 (07:17→17:46)
[2023-01-19] MEDS: metroNIDAZOLE 500 MG/100 ML 500 MG/100 ML BAG IV SCH ×2 (07:17→14:49)
[2023-01-19] MEDS: INSULIN REGULAR HUMAN 100 UNIT in SODIUM CHLORIDE 0.9% 100ML 99 ML IV SCH ×2 (07:18→10:31)
[2023-01-19] MEDS: SODIUM CHLORIDE FLUSH 0.9% 10 ML SYRINGE IVP PRN (08:55)
[2023-01-19] MEDS: FAMOTIDINE 20 MG/2 ML VIAL IVP SCH ×2 (08:55→20:51)
[2023-01-19] MEDS: ACETAMINOPHEN 1,000 MG/100 ML 1,000 MG/100 ML BAG IV PRN (09:41)
[2023-01-19] MEDS ORDERED: POTASSIUM PHOSPHATE 15 MMOL in SODIUM CHLORIDE 0.9% 250 ML IV ONE (10:00)
[2023-01-19 15:32] LABS: MAGNESIUM 1.8 mg/dL (1.7-2.8)
--- NOTE | 2023-01-19 17:05 | PROVIDER PROGRESS NOTE ---
Subjective - Subjective Pt reports feeling: Worse (Worse pain in RLQ after eating (clear liquid diet).) Objective - Vital Signs/Intake & Output Vital Signs: Vital Signs Temp Pulse Resp BP BP Pulse Ox 01/19/23 16:00 36.7 C 74 13 107/86 H 99 01/19/23 15:00 64 16 129/83 H 97 01/19/23 14:00 73 14 125/78 98 Intake & Output: Intake & Output 01/16/23 01/17/23 01/18/23 01/19/23 23:59 23:59 23:59 23:59 Intake Total 4653.762 6625.167 4022.983 Output Total 550 2675 1345 Balance 4103.762 3950.167 2677.983 - Objective General Appearance: positive: No acute distress, Alert Eyes Bilateral: positive: Normal inspection, EOMI Eyes: OU Other (wide-set eyes) ENT: positive: ENT inspection nml, No signs of dehydration Neck: positive: Nml inspection, No JVD Respiratory: positive: No respiratory distress Cardiovascular: positive: Regular rate & rhythm Abdomen: positive: Non-tender, Other (Bowel sounds are present in the left upper and left lower quadrant, diminished bowel sounds in the right upper and right lower quadrant. He is no guarding or rebound) Skin: positive: Warm, Dry Extremities: positive: Non-tender, No pedal edema Neurologic/Psychiatric: positive: Oriented x3, Motor nml - Lab Results Fish Bones: 01/19/23 04:16 01/19/23 15:02 Other Labs: Lab Results x24hrs 01/19/23 01/19/23 01/19/23 Range/Units 15:02 15:02 04:16 WBC (4.8-10.8) x10^3/uL RBC (4.70-6.10) 10^6/uL Hgb (14.0-18.0) g/dL Hct (42.0-52.0) % MCV (80.0-94.0) fL MCH (27.0-31.0) pg MCHC (32.0-36.0) g/dL RDW (12.0-15.0) % Plt Count (130-450) 10^3/uL MPV (7.4-11.4) fL Neut # (Auto) (1.5-6.6) 10^3/uL Lymph # (Auto) (1.5-3.5) 10^3/uL Brooke # (Auto) (0.0-1.0) 10^3/uL Eos # (Auto) (0.0-0.7) 10^3/uL Baso # (Auto) (0.0-0.1) 10^3/uL Absolute Nucleated RBC x10^3/uL Nucleated RBC % /100WBC VBG pH (7.31-7.41) Ionized Calcium (1.15-1.33) mmol/L Sodium (135-145) mmol/L Potassium 3.0 L (3.5-5.0) mmol/L Chloride (101-111) mmol/L Carbon Dioxide (21-32) mmol/L Anion Gap (6-13) BUN (6-20) mg/dL Creatinine (0.6-1.2) mg/dL Estimated GFR (MDRD) (>89) Glucose (70-100) mg/dL Calcium (8.5-10.3) mg/dL Phosphorus (2.5-4.6) mg/dL Magnesium 1.8 (1.7-2.8) mg/dL Serum Ketones NEGATIVE SMALL H (NEGATIVE) 01/19/23 01/19/23 01/19/23 Range/Units 04:16 04:16 04:16 WBC 6.3 (4.8-10.8) x10^3/uL RBC 4.78 (4.70-6.10) 10^6/uL Hgb 14.1 (14.0-18.0) g/dL Hct 41.3 L (42.0-52.0) % MCV 86.4 (80.0-94.0) fL MCH 29.5 (27.0-31.0) pg MCHC 34.1 (32.0-36.0) g/dL RDW 13.9 (12.0-15.0) % Plt Count 255 (130-450) 10^3/uL MPV 10.4 (7.4-11.4) fL Neut # (Auto) 3.6 (1.5-6.6) 10^3/uL Lymph # (Auto) 2.2 (1.5-3.5) 10^3/uL Brooke # (Auto) 0.4 (0.0-1.0) 10^3/uL Eos # (Auto) 0.0 (0.0-0.7) 10^3/uL Baso # (Auto) 0.1 (0.0-0.1) 10^3/uL Absolute Nucleated RBC 0.00 x10^3/uL Nucleated RBC % 0.0 /100WBC VBG pH 7.369 (7.31-7.41) Ionized Calcium 1.12 L (1.15-1.33) mmol/L Sodium 136 (135-145) mmol/L Potassium 3.2 L (3.5-5.0) mmol/L Chloride 104 (101-111) mmol/L Carbon Dioxide 16 L (21-32) mmol/L Anion Gap 16.0 H (6-13) BUN < 5 L (6-20) mg/dL Creatinine 0.7 (0.6-1.2) mg/dL Estimated GFR (MDRD) 140 (>89) Glucose 292 H (70-100) mg/dL Calcium 8.4 L (8.5-10.3) mg/dL Phosphorus 1.8 L (2.5-4.6) mg/dL Magnesium 1.6 L (1.7-2.8) mg/dL Serum Ketones (NEGATIVE) 01/18/23 01/18/23 Range/Units 21:09 17:45 WBC (4.8-10.8) x10^3/uL RBC (4.70-6.10) 10^6/uL Hgb (14.0-18.0) g/dL Hct (42.0-52.0) % MCV (80.0-94.0) fL MCH (27.0-31.0) pg MCHC (32.0-36.0) g/dL RDW (12.0-15.0) % Plt Count (130-450) 10^3/uL MPV (7.4-11.4) fL Neut # (Auto) (1.5-6.6) 10^3/uL Lymph # (Auto) (1.5-3.5) 10^3/uL Brooke # (Auto) (0.0-1.0) 10^3/uL Eos # (Auto) (0.0-0.7) 10^3/uL Baso # (Auto) (0.0-0.1) 10^3/uL Absolute Nucleated RBC x10^3/uL Nucleated RBC % /100WBC VBG pH (7.31-7.41) Ionized Calcium (1.15-1.33) mmol/L Sodium 139 (135-145) mmol/L Potassium 3.0 L (3.5-5.0) mmol/L Chloride 111 (101-111) mmol/L Carbon Dioxide 21 (21-32) mmol/L Anion Gap 7.0 (6-13) BUN < 5 L (6-20) mg/dL Creatinine 0.7 (0.6-1.2) mg/dL Estimated GFR (MDRD) 140 (>89) Glucose 130 H (70-100) mg/dL Calcium 8.1 L (8.5-10.3) mg/dL Phosphorus (2.5-4.6) mg/dL Magnesium (1.7-2.8) mg/dL Serum Ketones SMALL H SMALL H (NEGATIVE) Assessment/Plan - Problem List (1) DKA (diabetic ketoacidosis) Impression: The lower doses of Insulin (which he was using to ration his meds) plus the finding of ileitis, are likely to be the reasons he went into DKA. Has been on insulin drip for about 48 hours now. Labs were reviewed. He still continues to have serum ketones present as of this morning. Serum glucose did go up when he started a clear liquid Plan: Remain in the ICU Cont DKA protocol including Insulin drip, iv saline hydration and frequent serum checks of his pH, glucose, serum ketones. (2) Ileitis Conclusion/Plan: He did have an elevated white count of 19.8. He did describe right-sided symptoms worsening slowly over the past 1 to 2 weeks. Appreciate general surgery input Labs were reviewed. His blood culture drawn yesterday is neg to date. His WBC has decreased on empiric iv antibx. Today he reports that he gets right lower quadrant pain shortly after he eats his meals which are clear liquids. He is passing gas but has had no BM in over 1 week. Plan: I discussed his status with Dr Bay, who did his consult. Will obtain repeat CT imaging w/ oral and iv contrast, d/t concern for partial bowel obstruction. Follow WBC daily Cont empiric treatment with IV Cipro and IV Flagyl We will continue with a clear liquid diet as we W/U his worsened pain, before advancing diet (3) Patient's noncompliance with other medical treatment and regimen due to financial hardship Conclusion/Plan: Patient admitted and mother at bedside supported that this patient was rationing his insulin in order to stretch it out until he had a job with health insurance that would pay part of the cost of insulin Social work informed me [facility] was [facility]
[2023-01-19] MEDS ORDERED: iohexoL-300 100 ML VIAL ONE (17:40)
[2023-01-19] MEDS ORDERED: DIATR MEGLU/DIATRIZOATE SODIUM 120 ML BOTTLE ONE (17:40)
[2023-01-19] MEDS ORDERED: iohexoL-300 100 ML VIAL IVP ONE (18:44)
[2023-01-19] MEDS ORDERED: DIATRIZOATE MEGLU/DIATRIZO SOD 30 ML BOTTLE PO ONE (18:44)
--- NOTE | 2023-01-19 18:55 | CT Report ---
PROCEDURE: ABDOMEN/PELVIS W INDICATIONS: F/U ileitis, poss obstructed now CONTRAST: 100ml omni 300 TECHNIQUE: After the administration of IV and oral contrast, 5 mm thick sections acquired from the diaphragms to the symphysis. 5 mm thick coronal and sagittal reformats were acquired. For radiation dose reducti on, the following was used: automated exposure control, adjustment of mA and/or kV according to comfort ent size. COMPARISON: 01/17/2023 FINDINGS: Image quality: Excellent. ABDOMEN: Lung bases: Lung bases are clear. Heart size is normal. A small hiatal hernia is incidentally note d. Solid organs: An enlarged, fatty infiltrated liver can be seen. The spleen demonstrates normal size and demonstrates no suspicious lesions. An accessory splenule is incidentally noted along the hilum of the primary spleen. Gallbladder wall does not appear thickened. Biliary system is non dilated. Pancreas enhances norm ally. No adrenal nodules. Kidneys demonstrate normal size and enhancement, without hydronephrosis. Peritoneum and bowel: Bowel loops demonstrate normal wall thickness and caliber. However, mild promi nence of proximal small bowel loops can be seen. The distal small bowel loops demonstrate normal angeli mary. On the prior report, there is described focal inflammation of the terminal ileum. This is no cherelle jessica definitely seen. No free fluid or air. Nodes and vessels: No retroperitoneal or mesenteric adenopathy by size criteria. Aorta and inferior vena cava are normal in size. Miscellaneous: No ventral hernias. PELVIS: Genitourinary: Bladder wall thickness is normal. Miscellaneous: No inguinal hernias or adenopathy. Bones: No suspicious bony lesions. No vertebral body compression fractures. IMPRESSION: Negative for small bowel obstruction. Prominence of proximal small bowel loops can be seen, which is consistent with regional ileus. The previously described focal inflammatory change of the terminal ileum is definitely seen on these images. Additional findings: Small hiatal hernia Enlarged, fatty infiltrated liver Accessory splenule Reviewed by: Jeremy Heath MD on 01/19/2023 5:53 PM [facility]DT Approved by: Jeremy Heath MD on 01/19/2023 5:53 PM AKDT Station ID: [id number]
[2023-01-19] MEDS ORDERED: DIATR MEGLU/DIATRIZOATE SODIUM 120 ML BOTTLE PO ONE (19:00)
[2023-01-19] MEDS: D5NS W/20 MEQ KCL 1,000 ML IV SCH (19:43)
[2023-01-19] MEDS: INSULIN GLARGINE-YFGN 300 UNIT/3 ML PEN SUBQ SCH (20:50)
[2023-01-19 22:52] LABS: MAGNESIUM 2.2 mg/dL (1.7-2.8); PHOSPHORUS 3.2 mg/dL (2.5-4.6)
[2023-01-20] MEDS ORDERED: INSULIN LISPRO 300 UNIT/3 ML PEN SUBQ ONE (00:11)
[2023-01-20] MEDS: D5NS W/20 MEQ KCL 1,000 ML IV SCH (04:28)
[2023-01-20 05:06] LABS: BASOPHILS # (AUTO) 0.1 10^3/uL (0.0-0.1); BASOPHILS % (AUTO) 0.6 %; HCT - HEMATOCRIT 41.4 % (42.0-52.0); HGB - HEMOGLOBIN 14.3 g/dL (14.0-18.0); LYMPHOCYTES % (AUTO) 25.3 %; MEAN CORPUSCULAR HEMOGLOBIN 29.9 pg (27.0-31.0); MEAN CORPUSCULAR HGB CONC 34.5 g/dL (32.0-36.0); MEAN CORPUSCULAR VOLUME 86.4 fL (80.0-94.0); MEAN PLATELET VOLUME 10.5 fL (7.4-11.4); MONOCYTES # (AUTO) 0.4 10^3/uL (0.0-1.0); MONOCYTES % (AUTO) 5.4 %; NEUTROPHILS # (AUTO) 5.4 10^3/uL (1.5-6.6); NEUTROPHILS % (AUTO) 68.4 %; PLT - PLATELET COUNT 256 10^3/uL (130-450); RED BLOOD COUNT 4.79 10^6/uL (4.70-6.10); WHITE BLOOD COUNT 7.8 x10^3/uL (4.8-10.8)
[2023-01-20 05:23] LABS: CALCIUM 8.8 mg/dL (8.5-10.3); CREATININE 0.8 mg/dL (0.6-1.2); MAGNESIUM 2.1 mg/dL (1.7-2.8); POTASSIUM 4.2 mmol/L (3.5-5.0)
--- NOTE | 2023-01-20 07:37 | PROVIDER PROGRESS NOTE ---
Assessment/Plan - Problem List (1) DM (diabetes mellitus), type 1, uncontrolled Qualifiers: Glycemic state: with hyperglycemia Qualified Code(s): E10.65 - Type 1 diabetes mellitus with hyperglycemia Assessment/Plan: His A1c came back at 9.1. Possibly elevated from his rationing of his insulin for about 2 weeks Plan: Since last evening, when the Insulin drip was stopped, he has been transitioned over to Lantus twice daily and sliding scale insulin, which started last night. Normally, he only takes long acting insulin at night then takes 20 units correctional each time he eats, he says. We will try to approximate his schedule as we go forward with insulin dosing adjustments here. We will slowly advance his diet from pureed today up to a carb controlled low fiber soft then solid diet (2) DKA (diabetic ketoacidosis) Impression: Resolved His serum ketones finally became negative at 1500 yesterday 01/19. The insulin drip was stopped at about 1900 yesterday. He was started on Lantus for his nighttime dose. He was also put on a sliding scale Plan: He can be moved out of the ICU (3) Ileus Conclusion/Plan: At admission, he did have an elevated white count of 19.8 and 1 to 2 weeks of abd pain plus constipation. Yesterday there was abd pain right after eating. I discussed with Dr Bay yesterday, who did his consult and we obtained a repeat CT imaging w/ oral and iv contrast, d/t concern for partial bowel obstruction. It showed an ileus, no further ileitis. Plan: The empiric IV Cipro and IV Flagyl were stopped last night We will slowly advance his diet from pureed today up to a carb controlled low fiber soft then solid diet (4) Ileitis Conclusion/Plan: Resolved by CT imaging yesterday evening. Labs were reviewed. His WBC had normalized yesterday and bld cx are neg to kamila.. Plan: I stopped empiric iv antibx last night (5) Patient's noncompliance with other medical treatment and regimen due to financial hardship Conclusion/Plan: Patient admitted he was rationing his insulin in order to stretch it out until he had a job with health insurance that would pay part of the cost of insulin Social work informed me he was accepted onto [facility] Health Insur Plan: The patient plans to find a PCP closer than [place] therefore he would benefit from attending [facility] diabetic education classes here, since he lives in [place]. I updated the [facility] RN about this. - Current Meds Current Meds: Current Medications Generic Name Dose Route Start Last Admin Trade Name Freq PRN Reason Stop Dose Admin Famotidine 20 mg 01/17/23 21:00 01/19/23 20:51 Famotidine 20 Mg/2 Ml Vial IVP 20 mg BID JOSEPHINE Administration Acetaminophen 1,000 mg in 100 mls @ 400 mls/hr 01/17/23 19:29 01/19/23 10:00 Acetaminophen IV Infused Q6HR PRN Infusion Moderate Pain (Level 4-6) Potassium Chloride/Dextrose/Sod Cl 1,000 mls @ 125 mls/hr 01/19/23 20:00 01/20/23 07:00 D5ns W/20 Meq Kcl IV 125 mls/hr .Q8H JOSEPHINE Infusion Insulin Glargine-yfgn 10 unit 01/19/23 21:00 01/19/23 20:50 Insulin Glargine-Yfgn 300 Unit/3 Ml Pen SUBQ 10 unit BID JOSEPHINE Administration Ondansetron HCl 4 mg 01/17/23 14:11 01/19/23 22:45 Ondansetron 4 Mg/2 Ml Vial IVP 4 mg Q6HR PRN Administration Nausea / Vomiting Sodium Chloride 10 ml 01/17/23 17:00 01/19/23 20:51 Sodium Chloride Flush 0.9% 10 Ml Syringe IVP 10 ml 0100,0900,1700 JOSEPHINE Administration Sodium Chloride 10 ml 01/17/23 14:11 01/19/23 08:55 Sodium Chloride Flush 0.9% 10 Ml Syringe IVP 10 ml PRN PRN Administration NEEDED PER PROVIDER ORDERS - Lab Result Fish Bone Diagrams: 01/20/23 04:25 01/20/23 04:25 - Additional Planning My Orders: My Active Orders 01/19/23 19:27 Miscellaenous Nursing Order [RC] QSHIFT 01/19/23 20:00 D5ns W/20 Meq KCl 1,000 ml IV 125 mls/hr 01/19/23 21:00 Insulin Glargine-Yfgn [Semglee] 10 unit SUBQ BID 01/20/23 07:34 Telemetry-Discontinue [RC] .ONCE Transfer [Admit \ Transfer \ Status] [RC] .ONCE 01/20/23 08:00 Sodium Phosphate 15 mmol Sodium Chloride 0.9% [Normal Saline 0.9%] 250 ml IV ONCE 01/20/23 Lunch DIET [Dysphagia - Puree] [DIET] 01/21/23 05:00 BMP - BASIC METABOLIC PANEL [CHEM] DAILYLAB CBC - COMP BLD CT W/AUTO DIFF [HEME] DAILYLAB MAGNESIUM [CHEM] DAILYLAB Subjective - Subjective Patient Reports: Heartburn Objective Vital Signs: Vital Signs - 24 hr 01/19/23 01/19/23 01/19/23 07:58 08:00 10:00 Temperature 37.1 C 37.1 C Heart Rate [ 80 69 Monitoring electrodes] Respiratory 14 13 Rate Blood Pressure 135/93 H 138/82 H [Left Brachial artery] Blood Pressure [Right Brachial artery] O2 Saturation 99 99 01/19/23 01/19/23 01/19/23 11:00 11:48 13:00 Temperature 37.2 C Heart Rate [ 74 81 Monitoring electrodes] Respiratory 13 14 Rate Blood Pressure 119/81 H 137/86 H [Left Brachial artery] Blood Pressure [Right Brachial artery] O2 Saturation 98 98 01/19/23 01/19/23 01/19/23 14:00 15:00 16:00 Temperature 36.7 C Heart Rate [ 73 64 74 Monitoring electrodes] Respiratory 14 16 13 Rate Blood Pressure 125/78 [Left Brachial artery] Blood Pressure 129/83 H 107/86 H [Right Brachial artery] O2 Saturation 98 97 99 01/19/23 01/19/23 01/19/23 17:00 18:00 19:00 Temperature Heart Rate [ 80 72 65 Monitoring electrodes] Respiratory 14 15 19 Rate Blood Pressure [Left Brachial artery] Blood Pressure 136/79 H 132/97 H 122/92 H [Right Brachial artery] O2 Saturation 99 98 98 01/19/23 01/19/23 01/19/23 20:00 21:00 22:00 Temperature 36.7 C Heart Rate [ 68 68 84 Monitoring electrodes] Respiratory 17 17 17 Rate Blood Pressure [Left Brachial artery] Blood Pressure 118/83 H 133/82 H 121/74 [Right Brachial artery] O2 Saturation 98 98 99 01/19/23 01/20/23 01/20/23 23:04 00:00 01:00 Temperature 36.4 C L Heart Rate [ 79 72 74 Monitoring electrodes] Respiratory 13 16 18 Rate Blood Pressure [Left Brachial artery] Blood Pressure 128/83 H 115/79 121/79 [Right Brachial artery] O2 Saturation 99 99 99 01/20/23 01/20/23 01/20/23 02:00 03:00 04:44 Temperature Heart Rate [ 65 66 78 Monitoring electrodes] Respiratory 17 13 16 Rate Blood Pressure [Left Brachial artery] Blood Pressure 123/79 121/79 123/78 [Right Brachial artery] O2 Saturation 100 97 100 01/20/23 01/20/23 01/20/23 05:00 05:25 06:00 Temperature 37.0 C Heart Rate [ 76 74 Monitoring electrodes] Respiratory 19 18 Rate Blood Pressure [Left Brachial artery] Blood Pressure 119/87 H 115/84 H [Right Brachial artery] O2 Saturation 99 98 01/20/23 07:00 Temperature Heart Rate [ 87 Monitoring electrodes] Respiratory 19 Rate Blood Pressure [Left Brachial artery] Blood Pressure 125/95 H [Right Brachial artery] O2 Saturation 100 Oxygen O2 Source Room air I&O (Last 24 Hrs): Intake and Output Totals x24h 01/18/23 01/19/23 01/20/23 23:59 23:59 23:59 Intake Total 6625.167 5380.483 2522.500 Output Total 2675 3820 3025 Balance 3950.167 1560.483 -502.500 General: Alert, Oriented x3 HEENT: Mucous membr. moist/pink, Other (wide set eyes) Neck: Supple, No JVD Neuro: Alert, Non Focal Cardiovascular: Regular rate Respiratory: No respiratory distress Abdomen: No tenderness Extremities: No clubbing, No edema, No tenderness/swelling - Results Results: Laboratory Results WBC 7.8 x10^3/uL (4.8-10.8) 01/20/23 04:25 RBC 4.79 10^6/uL (4.70-6.10) 01/20/23 04:25 Hgb 14.3 g/dL (14.0-18.0) 01/20/23 04:25 Hct 41.4 % (42.0-52.0) L 01/20/23 04:25 MCV 86.4 fL (80.0-94.0) 01/20/23 04:25 MCH 29.9 pg (27.0-31.0) 01/20/23 04:25 MCHC 34.5 g/dL (32.0-36.0) 01/20/23 04:25 RDW 14.0 % (12.0-15.0) 01/20/23 04:25 Plt Count 256 10^3/uL (130-450) 01/20/23 04:25 MPV 10.5 fL (7.4-11.4) 01/20/23 04:25 Neut # (Auto) 5.4 10^3/uL (1.5-6.6) 01/20/23 04:25 Lymph # (Auto) 2.0 10^3/uL (1.5-3.5) 01/20/23 04:25 [place] # (Auto) 0.4 10^3/uL (0.0-1.0) 01/20/23 04:25 Eos # (Auto) 0.0 10^3/uL (0.0-0.7) 01/20/23 04:25 Baso # (Auto) 0.1 10^3/uL (0.0-0.1) 01/20/23 04:25 Absolute Nucleated RBC 0.00 x10^3/uL 01/20/23 04:25 Nucleated RBC % 0.0 /100WBC 01/20/23 04:25 VBG pH 7.369 (7.31-7.41) 01/19/23 04:16 VBG pCO2 23.2 mmHg (41-51) L 01/18/23 12:52 VBG pO2 191.8 mmHg (25-47) H 01/18/23 12:52 VBG HCO3 14.3 mmol/L (23-28) L 01/18/23 12:52 VBG Total CO2 15.0 mmol/L (24-29) L 01/18/23 12:52 VBG O2 Saturation 99.0 % (60-80) H 01/18/23 12:52 VBG Base Excess -8.2 mmol/L (-2 - +2) L 01/18/23 12:52 Ionized Calcium 1.12 mmol/L (1.15-1.33) L 01/19/23 04:16 Sodium 136 mmol/L (135-145) 01/20/23 04:25 Potassium 4.2 mmol/L (3.5-5.0) 01/20/23 04:25 Chloride 103 mmol/L (101-111) 01/20/23 04:25 Carbon Dioxide 21 mmol/L (21-32) 01/20/23 04:25 Anion Gap 12.0 (6-13) 01/20/23 04:25 BUN 6 mg/dL (6-20) 01/20/23 04:25 Creatinine 0.8 mg/dL (0.6-1.2) 01/20/23 04:25 Estimated GFR (MDRD) 120 (>89) 01/20/23 04:25 Glucose 330 mg/dL (70-100) H 01/20/23 04:25 Estimat Average Glucose 214 mg/dL (70-100) H 01/18/23 04:40 Hemoglobin A1c % 9.1 % (4.27-6.07) H 01/18/23 04:40 Lactic Acid 0.9 mmol/L (0.5-2.2) 01/17/23 19:45 Calcium 8.8 mg/dL (8.5-10.3) 01/20/23 04:25 Phosphorus 2.0 mg/dL (2.5-4.6) L 01/20/23 04:25 Magnesium 2.1 mg/dL (1.7-2.8) 01/20/23 04:25 Total Bilirubin 2.1 mg/dL (0.2-1.0) H 01/17/23 08:47 AST 16 IU/L (10-42) 01/17/23 08:47 ALT 21 IU/L (10-60) 01/17/23 08:47 Alkaline Phosphatase 127 IU/L (42-121) H 01/17/23 08:47 Total Protein 8.0 g/dL (6.7-8.2) 01/17/23 08:47 Albumin 4.7 g/dL (3.2-5.5) 01/17/23 08:47 Globulin 3.3 g/dL (2.1-4.2) 01/17/23 08:47 Albumin/Globulin Ratio 1.4 (1.0-2.2) 01/17/23 08:47 Lipase 21 U/L (22-51) L 01/17/23 08:47 Urine Color YELLOW 01/17/23 17:00 Urine Clarity CLEAR (CLEAR) 01/17/23 17:00 Urine pH 5.5 PH (5.0-7.5) 01/17/23 17:00 Ur Specific [place] >=1.030 (1.002-1.030) H 01/17/23 17:00 Urine Protein TRACE mg/dL (NEGATIVE) 01/17/23 17:00 Urine Glucose (UA) NEGATIVE mg/dL (NEGATIVE) 01/17/23 17:00 Urine Ketones >=80 mg/dL (NEGATIVE) H 01/17/23 17:00 Urine Occult Blood SMALL (NEGATIVE) H 01/17/23 17:00 Urine Nitrite NEGATIVE (NEGATIVE) 01/17/23 17:00 Urine Bilirubin NEGATIVE (NEGATIVE) 01/17/23 17:00 Urine Urobilinogen 0.2 (NORMAL) E.U./dL (NORMAL) 01/17/23 17:00 Ur Leukocyte Esterase NEGATIVE (NEGATIVE) 01/17/23 17:00 Urine RBC 0-5 /HPF (0-5) 01/17/23 17:00 Urine WBC 0-3 /HPF (0-3) 01/17/23 17:00 Ur Squamous Epith Cells RARE Squamous (<= Few) 01/17/23 17:00 Urine Bacteria Rare /HPF (None Seen) 01/17/23 17:00 Urine Casts 0-2 Hyaline Casts /LPF 01/17/23 17:00 Urine Mucus Few Strands 01/17/23 17:00 Ur Microscopic Review INDICATED 01/17/23 17:00 Urine Culture Comments NOT INDICATED 01/17/23 17:00 Nasal Screen MRSA (PCR) NEGATIVE (NEGATIVE) 01/17/23 15:17 Serum Ketones NEGATIVE (NEGATIVE) 01/19/23 15:02
[2023-01-20] MEDS ORDERED: SODIUM PHOSPHATE 15 MMOL in SODIUM CHLORIDE 0.9% 250 ML IV ONE (08:00)
[2023-01-20] MEDS: INSULIN LISPRO 300 UNIT/3 ML PEN SUBQ SCH ×4 (08:05→21:29)
[2023-01-20] MEDS: INSULIN GLARGINE-YFGN 300 UNIT/3 ML PEN SUBQ SCH (08:05)
[2023-01-20] MEDS: FAMOTIDINE 20 MG/2 ML VIAL IVP SCH (08:41)
[2023-01-20] MEDS: SODIUM CHLORIDE FLUSH 0.9% 10 ML SYRINGE IVP PRN (08:42)
[2023-01-20] MEDS: SODIUM CHLORIDE FLUSH 0.9% 10 ML SYRINGE IVP SCH ×3 (08:44→21:30)
[2023-01-20] MEDS ORDERED: NS W/20 MEQ KCL 1,000 ML IV SCH ×2 (13:00→16:49)
[2023-01-20] MEDS: ACETAMINOPHEN 1,000 MG/100 ML 1,000 MG/100 ML BAG IV PRN (19:45)
[2023-01-20] MEDS ORDERED: INSULIN GLARGINE-YFGN 300 UNIT/3 ML PEN SUBQ SCH (21:00)
[2023-01-20] MEDS: FAMOTIDINE 20 MG TABLET PO SCH (21:28)
[2023-01-21] MEDS: ONDANSETRON 4 MG/2 ML VIAL IVP PRN (02:37)
[2023-01-21] MEDS: ACETAMINOPHEN 1,000 MG/100 ML 1,000 MG/100 ML BAG IV PRN (02:42)
[2023-01-21] MEDS ORDERED: MAG HYDROX/AL HYDROX/SIMETH 30 ML UDC PO PRN (04:44)
[2023-01-21 05:35] LABS: BASOPHILS # (AUTO) 0.1 10^3/uL (0.0-0.1); BASOPHILS % (AUTO) 0.7 %; EOSINOPHILS % (AUTO) 0.1 %; HCT - HEMATOCRIT 45.8 % (42.0-52.0); HGB - HEMOGLOBIN 15.1 g/dL (14.0-18.0); LYMPHOCYTES # (AUTO) 2.3 10^3/uL (1.5-3.5); LYMPHOCYTES % (AUTO) 21.6 %; MEAN CORPUSCULAR HEMOGLOBIN 29.4 pg (27.0-31.0); MEAN CORPUSCULAR VOLUME 89.1 fL (80.0-94.0); MEAN PLATELET VOLUME 10.9 fL (7.4-11.4); MONOCYTES # (AUTO) 0.5 10^3/uL (0.0-1.0); MONOCYTES % (AUTO) 4.3 %; NEUTROPHILS # (AUTO) 7.7 10^3/uL (1.5-6.6); PLT - PLATELET COUNT 310 10^3/uL (130-450); RED BLOOD COUNT 5.14 10^6/uL (4.70-6.10); RED CELL DISTRIBUTION WIDTH 13.4 % (12.0-15.0); WHITE BLOOD COUNT 10.6 x10^3/uL (4.8-10.8)
[2023-01-21 05:42] LABS: CREATININE 0.9 mg/dL (0.6-1.2); MAGNESIUM 1.9 mg/dL (1.7-2.8); POTASSIUM 4.2 mmol/L (3.5-5.0)
[2023-01-21] MEDS ORDERED: PROCHLORPERAZINE 10 MG/2 ML VIAL IVP PRN (05:53)
[2023-01-21] MEDS ORDERED: INSULIN LISPRO 300 UNIT/3 ML PEN SUBQ STA ×2 (06:14→08:28)
--- NOTE | 2023-01-21 08:33 | PROVIDER PROGRESS NOTE ---
Assessment/Plan - Problem List (1) N&V (nausea and vomiting) Assessment/Plan: After eating a solid diabetic dinner yesterday for dinner, he had nausea and vomiting x3 overnight and has had heartburn all day today. He needed Compazine and Reglan. I suspect this is still his ileus giving him symptoms. Or he may have gastritis, or diabetic gastroparesis, having had diabetes for14 years. All labs were reviewed. Today his bicarb has dropped to 16 from 21 yesterday, and anion gap has increased to 23, therefore he may be going back into DKA Plan: We will de-escalate his diet back to clear liquids Will start Reglan, and will give it scheduled every 6 hours IV for 24 hours, then change to prn Continue with as needed IV antiemetics as well Continue with IV fluids, since they were supposed to be stopped at midnight this last night We will also check serum ketones and a VBG for his pH, as he may be going back into DKA (2) DM (diabetes mellitus), type 1, uncontrolled Qualifiers: Glycemic state: with hyperglycemia Qualified Code(s): E10.65 - Type 1 diabetes mellitus with hyperglycemia Assessment/Plan: His A1c came back at 9.1. Probably elevated from his rationing of his insulin for about 2 weeks He has been moved out of the ICU, transitioned over to Lantus twice daily and sliding scale insulin. His glu were 400's overnight 01/20-01/21 and he needed 14U short-acting given several times. Normally, he only takes long acting insulin at night, and then takes 20 units correctional each time he eats, he says. Plan: We will try to approximate his schedule as we go forward with insulin dosing adjustments here. We need to de-escalate his diet today, due to N/V (3) DKA (diabetic ketoacidosis) Impression: Recurred His serum ketones became negative on 01/19, and he came out of the ICU and he was started on Lantus nighttime dose plus a sliding scale of Insulin. Today we checkied serum ketones and a VBG for his pH, and he is going back into DKA w/ (+) serum ketones x2 Plan: Will return to the ICU and restart an insulin drip and DKA protocol (4) Ileus Conclusion/Plan: At admission, he did have an elevated white count of 19.8 and 1 to 2 weeks of abd pain plus constipation. There was abd pain right after eating and we obtained a repeat CT imaging w/ oral and iv contrast, d/t concern for partial bowel obstruction. It showed an ileus, no further ileitis. The empiric IV Cipro and IV Flagyl were stopped He is p.o. Pepcid 20 IV twice daily prophylactic in the ICU was changed to Pepcid 20 p.o. twice daily. 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 Labs were reviewed. His WBC had normalized and bld cx are neg to date. I stopped empiric iv antibx (6) Patient's noncompliance with other medical treatment and regimen due to financial hardship Conclusion/Plan: Patient admitted he was rationing his insulin in order to stretch it out until he had a job with health insurance that would pay part of the cost of insulin Social work informed me he was accepted onto [facility] Plan: The patient plans to find a PCP closer than [place], therefore he would benefit from attending [facility] diabetic education classes here, since he lives in [place]. I have updated our [facility] RN about this. - Current Meds Current Meds: Current Medications Generic Name Dose Route Start Last Admin Trade Name Freq PRN Reason Stop Dose Admin Famotidine 20 mg 01/20/23 21:00 01/20/23 21:28 Famotidine 20 Mg Tablet PO 20 mg BID JOSEPHINE Administration Acetaminophen 1,000 mg in 100 mls @ 400 mls/hr 01/17/23 19:29 01/21/23 04:13 Acetaminophen IV Infused Q6HR PRN Infusion Moderate Pain (Level 4-6) Insulin Glargine-yfgn 25 unit 01/20/23 21:00 01/20/23 21:29 Insulin Glargine-Yfgn 300 Unit/3 Ml Pen SUBQ 25 unit QPM JOSEPHINE Administration Insulin Human Lispro 3 - 11 unit 01/20/23 08:00 01/20/23 21:29 Insulin Lispro 300 Unit/3 Ml Pen SUBQ 9 unit 0800,1200,1700,2100 JOSEPHINE Administration Protocol Ondansetron HCl 4 mg 01/17/23 14:11 01/21/23 02:37 Ondansetron 4 Mg/2 Ml Vial IVP 4 mg Q6HR PRN Administration Nausea / Vomiting Sodium Chloride 10 ml 01/17/23 17:00 01/20/23 21:30 Sodium Chloride Flush 0.9% 10 Ml Syringe IVP 10 ml 0100,0900,1700 JOSEPHINE Administration Sodium Chloride 10 ml 01/17/23 14:11 01/20/23 08:42 Sodium Chloride Flush 0.9% 10 Ml Syringe IVP 10 ml PRN PRN Administration NEEDED PER PROVIDER ORDERS - Lab Result Fish Bone Diagrams: 01/21/23 05:05 01/21/23 14:31 - Additional Planning My Orders: My Active Orders 01/20/23 Dinner Carb-controlled Diet [DIET] 01/20/23 21:00 Famotidine [Pepcid] 20 mg PO BID Insulin Glargine-Yfgn [Semglee] 25 unit SUBQ QPM 01/21/23 KETONES, SERUM (ACETEST) [CHEM] Stat VENOUS BLOOD GAS [BG] Stat 01/21/23 08:28 Insulin Lispro [Humalog Kwikpen U-100] 14 unit SUBQ ONCE STA 01/21/23 08:29 UA w/ MICROSCOPIC, CULT IF [URIN] Stat 01/21/23 08:30 Metoclopramide Inj [Reglan Inj] 5 mg IVP Q6HR 01/21/23 11:00 Sodium Chloride 0.9% [Normal Saline 0.9%] 1,000 ml IV 125 mls/hr 01/21/23 Lunch Clear Liquid Diet [DIET] Subjective - Subjective Patient Reports: Heartburn Nursing Reports: Other (Only taking in part of his liquids due to heartburn) Objective Vital Signs: Vital Signs - 24 hr 01/20/23 01/20/23 01/21/23 16:06 23:44 07:25 Temperature 36.7 C 36.7 C 36.8 C Heart Rate [ 64 99 Brachial] Heart Rate [ 77 Monitoring electrodes] Respiratory 16 18 16 Rate Blood Pressure 128/93 H 115/85 H 108/54 L [Right Brachial artery] O2 Saturation 98 99 98 Oxygen O2 Source Room air I&O (Last 24 Hrs): Intake and Output Totals x24h 01/19/23 01/20/23 01/21/23 23:59 23:59 23:59 Intake Total 5458.033 5613.610 760.847 Output Total 3820 3025 300 Balance 8271.369 9651.610 460.847 General: Alert, Oriented x3, No acute distress HEENT: Atraumatic, Mucous membr. moist/pink Neck: Supple, No JVD Neuro: Alert, Non Focal Cardiovascular: Regular rate Respiratory: No respiratory distress Abdomen: Normal bowel sounds, Soft, No tenderness Extremities: No clubbing, No edema, No tenderness/swelling - Results Results: Laboratory Results WBC 10.6 x10^3/uL (4.8-10.8) 01/21/23 05:05 RBC 5.14 10^6/uL (4.70-6.10) 01/21/23 05:05 Hgb 15.1 g/dL (14.0-18.0) 01/21/23 05:05 Hct 45.8 % (42.0-52.0) 01/21/23 05:05 MCV 89.1 fL (80.0-94.0) 01/21/23 05:05 MCH 29.4 pg (27.0-31.0) 01/21/23 05:05 MCHC 33.0 g/dL (32.0-36.0) 01/21/23 05:05 RDW 13.4 % (12.0-15.0) 01/21/23 05:05 Plt Count 310 10^3/uL (130-450) 01/21/23 05:05 MPV 10.9 fL (7.4-11.4) 01/21/23 05:05 Neut # (Auto) 7.7 10^3/uL (1.5-6.6) H 01/21/23 05:05 Lymph # (Auto) 2.3 10^3/uL (1.5-3.5) 01/21/23 05:05 [place] # (Auto) 0.5 10^3/uL (0.0-1.0) 01/21/23 05:05 Eos # (Auto) 0.0 10^3/uL (0.0-0.7) 01/21/23 05:05 Baso # (Auto) 0.1 10^3/uL (0.0-0.1) 01/21/23 05:05 Absolute Nucleated RBC 0.00 x10^3/uL 01/21/23 05:05 Nucleated RBC % 0.0 /100WBC 01/21/23 05:05 VBG pH 7.369 (7.31-7.41) 01/19/23 04:16 VBG pCO2 23.2 mmHg (41-51) L 01/18/23 12:52 VBG pO2 191.8 mmHg (25-47) H 01/18/23 12:52 VBG HCO3 14.3 mmol/L (23-28) L 01/18/23 12:52 VBG Total CO2 15.0 mmol/L (24-29) L 01/18/23 12:52 VBG O2 Saturation 99.0 % (60-80) H 01/18/23 12:52 VBG Base Excess -8.2 mmol/L (-2 - +2) L 01/18/23 12:52 Ionized Calcium 1.12 mmol/L (1.15-1.33) L 01/19/23 04:16 Sodium 136 mmol/L (135-145) 01/21/23 05:05 Potassium 4.2 mmol/L (3.5-5.0) 01/21/23 05:05 Chloride 97 mmol/L (101-111) L 01/21/23 05:05 Carbon Dioxide 16 mmol/L (21-32) L 01/21/23 05:05 Anion Gap 23.0 (6-13) H 01/21/23 05:05 BUN 9 mg/dL (6-20) 01/21/23 05:05 Creatinine 0.9 mg/dL (0.6-1.2) 01/21/23 05:05 Estimated GFR (MDRD) 105 (>89) 01/21/23 05:05 Glucose 465 mg/dL (70-100) H 01/21/23 05:05 Estimat Average Glucose 214 mg/dL (70-100) H 01/18/23 04:40 Hemoglobin A1c % 9.1 % (4.27-6.07) H 01/18/23 04:40 Lactic Acid 0.9 mmol/L (0.5-2.2) 01/17/23 19:45 Calcium 9.0 mg/dL (8.5-10.3) 01/21/23 05:05 Phosphorus 2.0 mg/dL (2.5-4.6) L 01/20/23 04:25 Magnesium 1.9 mg/dL (1.7-2.8) 01/21/23 05:05 Total Bilirubin 2.1 mg/dL (0.2-1.0) H 01/17/23 08:47 AST 16 IU/L (10-42) 01/17/23 08:47 ALT 21 IU/L (10-60) 01/17/23 08:47 Alkaline Phosphatase 127 IU/L (42-121) H 01/17/23 08:47 Total Protein 8.0 g/dL (6.7-8.2) 01/17/23 08:47 Albumin 4.7 g/dL (3.2-5.5) 01/17/23 08:47 Globulin 3.3 g/dL (2.1-4.2) 01/17/23 08:47 Albumin/Globulin Ratio 1.4 (1.0-2.2) 01/17/23 08:47 Lipase 21 U/L (22-51) L 01/17/23 08:47 Urine Color YELLOW 01/17/23 17:00 Urine Clarity CLEAR (CLEAR) 01/17/23 17:00 Urine pH 5.5 PH (5.0-7.5) 01/17/23 17:00 Ur Specific [place] >=1.030 (1.002-1.030) H 01/17/23 17:00 Urine Protein TRACE mg/dL (NEGATIVE) 01/17/23 17:00 Urine Glucose (UA) NEGATIVE mg/dL (NEGATIVE) 01/17/23 17:00 Urine Ketones >=80 mg/dL (NEGATIVE) H 01/17/23 17:00 Urine Occult Blood SMALL (NEGATIVE) H 01/17/23 17:00 Urine Nitrite NEGATIVE (NEGATIVE) 01/17/23 17:00 Urine Bilirubin NEGATIVE (NEGATIVE) 01/17/23 17:00 Urine Urobilinogen 0.2 (NORMAL) E.U./dL (NORMAL) 01/17/23 17:00 Ur Leukocyte Esterase NEGATIVE (NEGATIVE) 01/17/23 17:00 Urine RBC 0-5 /HPF (0-5) 01/17/23 17:00 Urine WBC 0-3 /HPF (0-3) 01/17/23 17:00 Ur Squamous Epith Cells RARE Squamous (<= Few) 01/17/23 17:00 Urine Bacteria Rare /HPF (None Seen) 01/17/23 17:00 Urine Casts 0-2 Hyaline Casts /LPF 01/17/23 17:00 Urine Mucus Few Strands 01/17/23 17:00 Ur Microscopic Review INDICATED 01/17/23 17:00 Urine Culture Comments NOT INDICATED 01/17/23 17:00 Nasal Screen MRSA (PCR) NEGATIVE (NEGATIVE) 01/17/23 15:17 Serum Ketones NEGATIVE (NEGATIVE) 01/19/23 15:02
[2023-01-21] MEDS: SODIUM CHLORIDE FLUSH 0.9% 10 ML SYRINGE IVP SCH ×2 (08:39→16:34)
[2023-01-21] MEDS: FAMOTIDINE 20 MG TABLET PO SCH (08:39)
[2023-01-21 08:51] LABS: VBG PH 7.355 (7.31-7.41)
[2023-01-21 08:52] LABS: VBG BASE EXCESS -10.7 mmol/L (-2 - +2); VBG HCO3 12.3 mmol/L (23-28); VBG PCO2 22.6 mmHg (41-51); VBG PO2 81.3 mmHg (25-47)
[2023-01-21] MEDS: METOCLOPRAMIDE 10 MG/2 ML VIAL IVP SCH ×3 (08:56→20:53)
[2023-01-21] MEDS: INSULIN LISPRO 300 UNIT/3 ML PEN SUBQ SCH ×2 (09:01→11:56)
[2023-01-21] MEDS ORDERED: INSULIN GLARGINE-YFGN 300 UNIT/3 ML PEN SUBQ SCH ×2 (09:23→21:00)
[2023-01-21 09:27] LABS: BILIRUBIN,URINE NEGATIVE (NEGATIVE); GLUCOSE, URINE (UA) 500 mg/dL (NEGATIVE); KETONES,URINE (UA) >=80 mg/dL (NEGATIVE); LEUKOCYTE ESTERASE, URINE NEGATIVE (NEGATIVE); NITRITE,URINE NEGATIVE (NEGATIVE); OCCULT BLOOD,URINE NEGATIVE (NEGATIVE); PH,URINE 5.5 PH (5.0-7.5); PROTEIN,URINE NEGATIVE (NEGATIVE); UROBILINOGEN,URINE 0.2 (NORMAL) E.U./dL (NORMAL)
[2023-01-21 09:39] LABS: BACTERIA,URINE None Seen /HPF (None Seen); CLARITY,URINE CLEAR (CLEAR); RBC,URINE None Seen /HPF (0-5); SQUAMOUS EPITHELIAL CELL,UR NONE SEEN (<= Few); WBC,URINE 0-3 /HPF (0-3)
[2023-01-21] MEDS ORDERED: SODIUM CHLORIDE 0.9% 1,000 ML IV SCH (11:00)
[2023-01-21 14:56] LABS: CALCIUM 9.1 mg/dL (8.5-10.3); POTASSIUM 3.7 mmol/L (3.5-5.0)
[2023-01-21] MEDS ORDERED: INSULIN REGULAR IN 0.9 % NS 100 UNIT/100 ML BAG IV SCH (16:00)
[2023-01-21 16:21] LABS: KETONES, SERUM (ACETEST) SMALL (NEGATIVE)
[2023-01-21 16:24] LABS: BUN - BLOOD UREA NITROGEN 10 mg/dL (6-20); CARBON DIOXIDE - CO2 20 mmol/L (21-32); CHLORIDE 104 mmol/L (101-111); CREATININE 0.9 mg/dL (0.6-1.2); GFR - MDRD 105 (>89); GLUCOSE 212 mg/dL (70-100); MAGNESIUM 1.9 mg/dL (1.7-2.8); POTASSIUM 3.5 mmol/L (3.5-5.0); SODIUM 138 mmol/L (135-145)
[2023-01-21] MEDS: INSULIN REGULAR HUMAN 100 UNIT in SODIUM CHLORIDE 0.9% 100ML 99 ML IV SCH (16:34)
[2023-01-21] MEDS: POTASSIUM CHLOR 10 MEQ/100 ML 10 MEQ/100 ML BAG IV SCH ×5 (17:15→23:02)
[2023-01-21 17:38] LABS: KETONES, SERUM (ACETEST) SMALL (NEGATIVE)
[2023-01-21 17:39] LABS: BUN - BLOOD UREA NITROGEN 11 mg/dL (6-20); CARBON DIOXIDE - CO2 20 mmol/L (21-32); CHLORIDE 104 mmol/L (101-111); CREATININE 0.8 mg/dL (0.6-1.2); GFR - MDRD 120 (>89); GLUCOSE 210 mg/dL (70-100); MAGNESIUM 1.9 mg/dL (1.7-2.8); POTASSIUM 3.3 mmol/L (3.5-5.0); SODIUM 137 mmol/L (135-145)
[2023-01-21] MEDS: D5NS W/20 MEQ KCL 1,000 ML IV SCH (18:39)
[2023-01-21 19:30] LABS: KETONES, SERUM (ACETEST) SMALL (NEGATIVE)
[2023-01-21 19:33] LABS: BUN - BLOOD UREA NITROGEN 10 mg/dL (6-20); CALCIUM 8.8 mg/dL (8.5-10.3); CARBON DIOXIDE - CO2 23 mmol/L (21-32); CHLORIDE 107 mmol/L (101-111); CREATININE 0.7 mg/dL (0.6-1.2); GFR - MDRD 140 (>89); GLUCOSE 171 mg/dL (70-100); MAGNESIUM 1.8 mg/dL (1.7-2.8); POTASSIUM 3.3 mmol/L (3.5-5.0); SODIUM 138 mmol/L (135-145)
[2023-01-21] MEDS ORDERED: MAGNESIUM OXIDE 400 MG TABLET PO ONE (20:36)
[2023-01-21] MEDS: PANTOPRAZOLE 40 MG VIAL IVP SCH (20:51)
[2023-01-22] MEDS: POTASSIUM CHLOR 10 MEQ/100 ML 10 MEQ/100 ML BAG IV SCH ×3 (00:05→09:29)
[2023-01-22] MEDS: SODIUM CHLORIDE FLUSH 0.9% 10 ML SYRINGE IVP SCH ×3 (00:07→17:21)
[2023-01-22] MEDS: INSULIN REGULAR HUMAN 100 UNIT in SODIUM CHLORIDE 0.9% 100ML 99 ML IV SCH ×3 (02:09→12:11)
[2023-01-22 02:29] LABS: MAGNESIUM 1.8 mg/dL (1.7-2.8)
[2023-01-22] MEDS ORDERED: MAGNESIUM OXIDE 400 MG TABLET PO ONE (03:00)
[2023-01-22] MEDS: D5NS W/20 MEQ KCL 1,000 ML IV SCH ×3 (04:56→14:22)
[2023-01-22 05:23] LABS: CALCIUM 8.6 mg/dL (8.5-10.3); CREATININE 0.6 mg/dL (0.6-1.2); POTASSIUM 3.2 mmol/L (3.5-5.0)
[2023-01-22 06:19] LABS: MAGNESIUM 1.9 mg/dL (1.7-2.8); PHOSPHORUS 2.1 mg/dL (2.5-4.6)
[2023-01-22] MEDS: NEUTRA-PHOS 250 MG TABLET PO SCH ×2 (06:45→09:29)
[2023-01-22] MEDS: PANTOPRAZOLE 40 MG VIAL IVP SCH ×2 (09:08→20:33)
[2023-01-22] MEDS ORDERED: POTASSIUM PHOSPHATE 15 MMOL in SODIUM CHLORIDE 0.9% 250 ML IV SCH ×4 (10:00)
[2023-01-22] MEDS ORDERED: POTASSIUM CHLOR 10 MEQ/100 ML 10 MEQ/100 ML BAG IV SCH (10:00)
[2023-01-22] MEDS ORDERED: METOCLOPRAMIDE 10 MG/2 ML VIAL IVP PRN (10:47)
[2023-01-22] MEDS: METOCLOPRAMIDE 10 MG/2 ML VIAL IVP SCH ×2 (12:29→18:15)
[2023-01-22 17:27] LABS: POTASSIUM 3.3 mmol/L (3.5-5.0)
--- NOTE | 2023-01-22 17:50 | PROVIDER PROGRESS NOTE ---
Subjective - Subjective Pt reports feeling: Improved (No more heartburn since IV BID Protonix started yest. No more nausea since scheduled Reglan given q6h yesterday) Objective - Vital Signs/Intake & Output Reviewed Vital Signs: Yes Vital Signs: Vital Signs Temp Pulse Resp BP Pulse Ox 01/22/23 17:41 80 14 151/97 H 98 01/22/23 16:00 37.2 C 76 14 136/87 H 97 01/22/23 15:00 70 10 L 137/94 H 94 01/22/23 14:00 74 18 137/85 H 94 Intake & Output: Intake & Output 01/19/23 01/20/23 01/21/23 01/22/23 23:59 23:59 23:59 23:59 Intake Total 5458.033 5613.610 3754.470 3839.917 Output Total 3820 3025 825 0 Balance 6028.543 1098.610 2929.470 3839.917 - Objective General Appearance: positive: No acute distress Eyes Bilateral: positive: EOMI, Other (wide set eyes) ENT: positive: ENT inspection nml, No signs of dehydration Neck: positive: Nml inspection, No JVD Respiratory: positive: No respiratory distress, Breath sounds nml Cardiovascular: positive: Regular rate & rhythm, No murmur Abdomen: positive: Non-tender, Nml bowel sounds, No distention Skin: positive: Warm, Dry Extremities: positive: Non-tender, No pedal edema Neurologic/Psychiatric: positive: Oriented x3, Motor nml - Lab Results Fish Bones: 01/21/23 05:05 01/22/23 17:00 Other Labs: Lab Results x24hrs 01/22/23 01/22/23 01/22/23 Range/Units 17:00 17:00 13:25 Sodium (135-145) mmol/L Potassium 3.3 L (3.5-5.0) mmol/L Chloride (101-111) mmol/L Carbon Dioxide (21-32) mmol/L Anion Gap (6-13) BUN (6-20) mg/dL Creatinine (0.6-1.2) mg/dL Estimated GFR (MDRD) (>89) Glucose (70-100) mg/dL Calcium (8.5-10.3) mg/dL Phosphorus 2.0 L (2.5-4.6) mg/dL Magnesium (1.7-2.8) mg/dL Serum Ketones NEGATIVE SMALL H (NEGATIVE) 01/22/23 01/22/23 01/22/23 Range/Units 08:58 08:58 04:56 Sodium (135-145) mmol/L Potassium 3.5 (3.5-5.0) mmol/L Chloride (101-111) mmol/L Carbon Dioxide (21-32) mmol/L Anion Gap (6-13) BUN (6-20) mg/dL Creatinine (0.6-1.2) mg/dL Estimated GFR (MDRD) (>89) Glucose (70-100) mg/dL Calcium (8.5-10.3) mg/dL Phosphorus 2.1 L (2.5-4.6) mg/dL Magnesium 1.9 (1.7-2.8) mg/dL Serum Ketones SMALL H (NEGATIVE) 01/22/23 01/22/23 01/22/23 Range/Units 04:56 02:12 02:12 Sodium 138 (135-145) mmol/L Potassium 3.2 L 4.0 (3.5-5.0) mmol/L Chloride 105 (101-111) mmol/L Carbon Dioxide 24 (21-32) mmol/L Anion Gap 9.0 (6-13) BUN 8 (6-20) mg/dL Creatinine 0.6 (0.6-1.2) mg/dL Estimated GFR (MDRD) 167 (>89) Glucose 198 H (70-100) mg/dL Calcium 8.6 (8.5-10.3) mg/dL Phosphorus (2.5-4.6) mg/dL Magnesium 1.8 (1.7-2.8) mg/dL Serum Ketones SMALL H (NEGATIVE) 01/22/23 01/21/23 01/21/23 Range/Units 00:26 22:23 19:17 Sodium 138 (135-145) mmol/L Potassium 3.3 L (3.5-5.0) mmol/L Chloride 107 (101-111) mmol/L Carbon Dioxide 23 (21-32) mmol/L Anion Gap 8.0 (6-13) BUN 10 (6-20) mg/dL Creatinine 0.7 (0.6-1.2) mg/dL Estimated GFR (MDRD) 140 (>89) Glucose 171 H (70-100) mg/dL Calcium 8.8 (8.5-10.3) mg/dL Phosphorus (2.5-4.6) mg/dL Magnesium 1.8 (1.7-2.8) mg/dL Serum Ketones SMALL H SMALL H SMALL H (NEGATIVE) Assessment/Plan - Problem List (1) DKA (diabetic ketoacidosis) Impression: Recurred After first being admitted to ICU, his serum ketones only became negative after 2.5 days of Insulin drip. Then he came out of the ICU, was started on Lantus nighttime dose plus a sliding scale of Insulin. Then he vomited overnight. Yest morning labs showed (+) serum ketones again, and increased Anion GAp and he was transferred back to the ICU due to DKA developed again. Today his serum ketones are still positive. All labs were reviewed. I tried him on scheduled IV Reglan in case he has gastroparesis as the cause of the recurrent nausea I changed his p.o. Pepcid to IV Protonix to treat his severe heartburn. With that he is able to tolerate clear liquids all day today Plan: Will rcont insulin drip and DKA protocol, until serum ketones neg, then will gain resume Lantus Simglee, this time 10 U a.m. and 35 U p.m., plus a sliding scale We will start a pured diet with dinner tonight and plan to advance diet very slowly, probable pured for breakfast and lunch tomorrow, before bringing in soft and solid food (2) DM (diabetes mellitus), type 1, uncontrolled Qualifiers: Glycemic state: with hyperglycemia Qualified Code(s): E10.65 - Type 1 diabetes mellitus with hyperglycemia Assessment/Plan: His A1c came back at 9.1. Probably elevated from his rationing of his insulin for about 2 weeks When he was moved out of the ICU and transitioned over to Lantus in p.m. only (and sliding scale insulin), it was because he did that before admission. At home he would take long acting insulin at night, and then takes 20 units correctional each time he eats, he said. He "counts carbs" but does not check his sugar routinely through the day. Plan: I already tried to approximate his schedule with insulin dosing here and tried Simglee 20 U qpm, plus ss Insulin. This time, when he will come out of DKA, will start Simglee 35 units q pm and Semglee 10 units every morning He would be a good candidate for CGM, now that he has health insurance He would also benefit from attending Diabetic education classes here at the [facility] (3) N&V (nausea and vomiting) Assessment/Plan: After eating a solid dinner 01/20, he had nausea and vomiting x3 overnight and had heartburn all the next day . He needed Compazine and Reglan. I suspect this is still his ileus giving him symptoms. Or he may have gastritis, or diabetic gastroparesis, having had diabetes for14 years. On 01/21, I gave him Reglan every 6 hours scheduled and iv Protonix BID, and we de-escalate his diet back to clear liquids Plan: Will give another day of sarwat IV Reglan, then change to prn Reglan 01/23. I educated the patient, as well as his mother at bedside today, on how to know when to ask for Reglan Continue with as needed IV antiemetics as well Continue with IV fluids (4) Ileus Conclusion/Plan: At admission, he did have an elevated white count of 19.8 and 1 to 2 weeks of abd pain plus constipation. And the adm CT abd showed ileitis. Then with abd pain right after eating, we obtained a repeat CT imaging w/ oral and iv contrast, d/t concern for partial bowel obstruction. It showed an ileus, no further ileitis. The empiric IV Cipro and IV Flagyl were stopped He was on Pepcid 20 IV twice daily prophylactic in the ICU, that was changed to Pepcid 20 p.o.BID on MedSur. On that dose, he has had heartburn for 2 days Plan: We will slowly advance his diet from clear liquids this time. We will start a pured diet with dinner tonight 01/22 and plan to advance diet very slowly, probable pured for breakfast and lunch tomorrow 01/23, before bringing in soft and solid food Cont with the exchange architect to IV Protonix BID for his heartburn Continue IV fluids (5) Ileitis Conclusion/Plan: Resolved by CT imaging. Labs were reviewed. His WBC had normalized and bld cx are neg to date. I stopped empiric iv antibx (6) Patient's noncompliance with other medical treatment and regimen due to financial hardship Conclusion/Plan: Patient admitted he was rationing his insulin in order to stretch it out until he had a job with health insurance that would pay part of the cost of insulin Social work informed me he was accepted onto [facility] Health Insur Plan: The patient plans to find a PCP closer than [place], therefore he would benefit from attending [facility] diabetic education classes here, since he lives in [place]. I have updated our [facility] RN about this.
[2023-01-22] MEDS: NS W/20 MEQ KCL 1,000 ML IV SCH (19:07)
[2023-01-22] MEDS ORDERED: INSULIN REGULAR IN 0.9 % NS 100 UNIT/100 ML BAG IV SCH (19:15)
[2023-01-22] MEDS ORDERED: POTASSIUM PHOSPHATE 15 MMOL in SODIUM CHLORIDE 0.9% 250 ML IV ONE (19:30)
[2023-01-22] MEDS: INSULIN LISPRO 300 UNIT/3 ML PEN SUBQ SCH (20:32)
[2023-01-22] MEDS: INSULIN GLARGINE-YFGN 300 UNIT/3 ML PEN SUBQ SCH (20:33)
[2023-01-23] MEDS: METOCLOPRAMIDE 10 MG/2 ML VIAL IVP SCH (00:34)
[2023-01-23] MEDS: SODIUM CHLORIDE FLUSH 0.9% 10 ML SYRINGE IVP SCH ×3 (00:35→17:45)
[2023-01-23] MEDS: POTASSIUM CHLOR 10 MEQ/100 ML 10 MEQ/100 ML BAG IV SCH ×4 (01:40→07:56)
[2023-01-23] MEDS: ACETAMINOPHEN 1,000 MG/100 ML 1,000 MG/100 ML BAG IV PRN (02:57)
[2023-01-23] MEDS: NS W/20 MEQ KCL 1,000 ML IV SCH (05:33)
[2023-01-23 06:03] LABS: CALCIUM, IONIZED 1.13 mmol/L (1.15-1.33); VBG PH 7.452 (7.31-7.41)
[2023-01-23 06:09] LABS: KETONES, SERUM (ACETEST) SMALL (NEGATIVE)
[2023-01-23 06:18] LABS: BUN - BLOOD UREA NITROGEN < 5 mg/dL (6-20); CARBON DIOXIDE - CO2 26 mmol/L (21-32); CHLORIDE 100 mmol/L (101-111); CREATININE 0.6 mg/dL (0.6-1.2); GFR - MDRD 167 (>89); GLUCOSE 246 mg/dL (70-100); MAGNESIUM 1.6 mg/dL (1.7-2.8); PHOSPHORUS 3.4 mg/dL (2.5-4.6); POTASSIUM 3.9 mmol/L (3.5-5.0); SODIUM 135 mmol/L (135-145)
[2023-01-23] MEDS ORDERED: MAGNESIUM OXIDE 400 MG TABLET PO ONE (07:00)
[2023-01-23] MEDS: PANTOPRAZOLE 40 MG VIAL IVP SCH (07:57)
[2023-01-23] MEDS: INSULIN GLARGINE-YFGN 300 UNIT/3 ML PEN SUBQ SCH ×2 (07:58→21:03)
[2023-01-23] MEDS: INSULIN LISPRO 300 UNIT/3 ML PEN SUBQ SCH ×6 (07:58→20:58)
[2023-01-23] MEDS ORDERED: METOCLOPRAMIDE 10 MG/2 ML VIAL IVP PRN (08:00)
[2023-01-23] MEDS ORDERED: INSULIN LISPRO 300 UNIT/3 ML PEN SUBQ ONE (08:30)
[2023-01-23] MEDS ORDERED: INSULIN LISPRO 300 UNIT/3 ML PEN SUBQ STA (13:56)
--- NOTE | 2023-01-23 17:47 | PROVIDER PROGRESS NOTE ---
Subjective - Prog Note Date Prog Note Date: 01/23/23 Prog Note Time: 17:45 - Subjective Pt reports feeling: Improved Subjective: He is worried because his sugar was 280 before breakfast, 265 before lunch. Our sliding scale plus my fixed dose nutritional 5 units before meals is not nearly enough he feels. He would easily give himself anywhere from 3 to 7 units more per meal than we give him. At dinner, he was 155, and he was getting get 7 units. He wanted an additional 3 units. He also takes Lantus 10 units in the morning, and 35 units at night. But his labs do not indicate that he is going back into DKA. Current Medications - Current Medications Current Medications: Active Medications Al Hydroxide/Mg Hydroxide (Mag Hydrox/Al Hydrox/Simeth 30 Ml Udc) 30 ml PO Q4HR PRN PRN Reason: INDIGESTION Acetaminophen (Acetaminophen) 1,000 mg in 100 mls @ 400 mls/hr IV Q6HR PRN PRN Reason: Moderate Pain (Level 4-6) Last Infusion: 01/23/23 03:51 Dose: Infused Insulin Glargine-yfgn (Insulin Glargine-Yfgn 300 Unit/3 Ml Pen) 35 unit SUBQ QPM [facility] Last Admin: 01/22/23 20:33 Dose: 35 unit Insulin Glargine-yfgn (Insulin Glargine-Yfgn 300 Unit/3 Ml Pen) 10 unit SUBQ QDBREAKFAST [facility] Last Admin: 01/23/23 07:58 Dose: 10 unit Insulin Human Lispro (Insulin Lispro 300 Unit/3 Ml Pen) 5 unit SUBQ TIDWM [facility] Last Admin: 01/23/23 17:27 Dose: 5 unit Insulin Human Lispro (Insulin Lispro 300 Unit/3 Ml Pen) 3 - 11 unit SUBQ 0800,1200,1700,2100 [facility]; Protocol Last Admin: 01/23/23 17:27 Dose: 3 unit Metoclopramide HCl (Metoclopramide 10 Mg/2 Ml Vial) 5 mg IVP Q6HR PRN PRN Reason: Nausea / Vomiting Ondansetron HCl (Ondansetron 4 Mg/2 Ml Vial) 4 mg IVP Q6HR PRN PRN Reason: Nausea / Vomiting Last Admin: 01/21/23 02:37 Dose: 4 mg Pantoprazole Sodium (Pantoprazole 40 Mg Vial) 40 mg IVP BID [facility] Last Admin: 01/23/23 07:57 Dose: 40 mg Prochlorperazine Edisylate (Prochlorperazine 10 Mg/2 Ml Vial) 10 mg IVP Q6HR PRN PRN Reason: Nausea / Vomiting Sodium Chloride (Sodium Chloride Flush 0.9% 10 Ml Syringe) 10 ml IVP 0100,0900,1700 [facility] Last Admin: 01/23/23 17:45 Dose: 10 ml Sodium Chloride (Sodium Chloride Flush 0.9% 10 Ml Syringe) 10 ml IVP PRN PRN PRN Reason: NEEDED PER PROVIDER ORDERS Last Admin: 01/20/23 08:42 Dose: 10 ml Insulin Aspart [Novolog Flexpen] 60 unit SQ DAILY 01/17/23 Insulin Detemir [Levemir Flexpen] 50 unit SQ HS 01/17/23 Objective - Vital Signs/Intake & Output Reviewed Vital Signs: Yes Vital Signs: Vital Signs x48h Temp Pulse Resp BP Pulse Ox 01/23/23 16:56 36.9 C 98 18 131/97 H 98 01/23/23 12:42 36.8 C 81 17 149/95 H 95 01/23/23 10:00 79 12 138/87 H 96 Intake & Output: Intake & Output 01/20/23 01/21/23 01/22/23 01/23/23 23:59 23:59 23:59 23:59 Intake Total 5613.610 3754.470 5162.884 3680 Output Total 3025 825 0 Balance 2588.610 2929.470 5162.884 3680 - Objective General Appearance: positive: Alert, Other (Tall, alert, comfortable white male in no acute distress) Eyes Bilateral: positive: PERRL, EOMI ENT: positive: Pharynx nml Neck: positive: No JVD. negative: Stiff neck Respiratory: positive: No respiratory distress. negative: Wheezes, Rales, Rhonchi Cardiovascular: positive: Regular rate & rhythm Abdomen: positive: No organomegaly, Nml bowel sounds, No distention, Tenderness (Mild over mid abdomen but no rebound or guarding) Skin: positive: Warm, Dry Extremities: positive: Full ROM, No pedal edema Neurologic/Psychiatric: positive: Oriented x3, CN's nml (2-12), Motor nml - Lab Results Fish Bones: 01/21/23 05:05 01/23/23 05:52 Other Labs: Lab Results x24hrs 01/23/23 01/23/23 Range/Units 05:52 05:52 VBG pH 7.452 H (7.31-7.41) Ionized Calcium 1.13 L (1.15-1.33) mmol/L Sodium 135 (135-145) mmol/L Potassium 3.9 (3.5-5.0) mmol/L Chloride 100 L (101-111) mmol/L Carbon Dioxide 26 (21-32) mmol/L Anion Gap 9.0 (6-13) BUN < 5 L (6-20) mg/dL Creatinine 0.6 (0.6-1.2) mg/dL Estimated GFR (MDRD) 167 (>89) Glucose 246 H (70-100) mg/dL Calcium 9.0 (8.5-10.3) mg/dL Phosphorus 3.4 (2.5-4.6) mg/dL Magnesium 1.6 L (1.7-2.8) mg/dL Serum Ketones SMALL H (NEGATIVE) Assessment/Plan - Problem List (1) DKA (diabetic ketoacidosis) Impression: The source of his DKA is lack of insulin. Because of insurance and finances, he has been rationing his insulin out and went into DKA. He was treated in the ICU with the drip, came out of the intensive care unit and started on his usual Lantus plus sliding scale. Then he had more emesis that night and January 22 was back with ketones. Put back in the ICU. This morning he is off the insulin drip. Anion gap is 9.0. Small amount of ketones. He received his Lantus 10 units this morning, 35 units last night. This morning he was scheduled to receive sliding scale only. I added 5 units of fixed nutritional dose. I continued the fixed nutritional dose with lunch and dinner, and I also liberalized the sliding scale by giving him 3 units more than each sliding scale required. By this evening he is much better. But he is concerned because he feels that this is still not nearly the amount of insulin he takes at home. Plan: Increased fixed nutritional dosing to 7 units plus sliding scale. Continue the Lantus 30 5 at night, 10 in the morning. If he is able to stay below 150, he is safe enough to go home. Social work has been in contact with pharmacy and PCP office about making sure he has access to his insulin. They are also considering a continuous glucose monitor to help him.He does have an end ocrinologist and will follow-up with the education spec. (2) DM (diabetes mellitus), type 1, uncontrolled Qualifiers: Glycemic state: with hyperglycemia Qualified Code(s): E10.65 - Type 1 diabetes mellitus with hyperglycemia Assessment/Plan: His A1c came back at 9.1. Probably elevated from his rationing of his insulin for about 2 weeks When he was moved out of the ICU and transitioned over to Lantus in p.m. only (and sliding scale insulin), it was because he did that before admission. At home he would take long acting insulin at night, and then takes 20 units correctional each time he eats, he said. He "counts carbs" but does not check his sugar routinely through the day. Plan: Continue Lantus 30 5 at night, 10 units in the morning. As already stated increase his fixed nutritional dosing to 7 units before meals. And then sliding scale. Hopefully that will let me calculate what I need to give him when he goes home. (3) N&V (nausea and vomiting) Assessment/Plan: He is on a scheduled Reglan 10 mg every 6 hours, and Protonix IV twice daily. He said that he was really hungry today and wanted to be transition from a pured diet at breakfast to a regular meal at lunch and I did so. Plan: Change his medications to p.o. Protonix 40 daily and Reglan 10 p.o. before meals and at bedtime. (4) Ileus/ileitis Conclusion/Plan: At admission, he did have an elevated white count of 19.8 and 1 to 2 weeks of abd pain plus constipation. And the adm CT abd showed ileitis. Then with abd pain right after eating, we obtained a repeat CT imaging w/ oral and iv contrast, d/t concern for partial bowel obstruction. It showed an ileus, no further ileitis. The empiric IV Cipro and IV Flagyl were stopped He was on Pepcid 20 IV twice daily prophylactic in the ICU, that was changed to Pepcid 20 p.o.BID on MedSurg. On that dose, he has had heartburn for 2 days Plan: He was started on clear liquids, then pured diet yesterday evening. Today at lunch I transition him to a low carb meal. Change Protonix to twice daily p.o. Stop IV fluids. (6) Patient's noncompliance with other medical treatment and regimen due to financial hardship Conclusion/Plan: Patient admitted he was rationing his insulin in order to stretch it out until he had a job with health insurance that would pay part of the cost of insulin Social work informed me he was accepted onto [facility] Health Insur Plan: The patient plans to find a PCP closer than [place], therefore he would benefit from attending [facility] diabetic education classes here, since he lives in [place]. I have updated our [facility] RN about this.
[2023-01-23] MEDS ORDERED: COD LIVER OIL/ZINC OXIDE 113 GM TUBE TOP PRN (17:58)
[2023-01-24 04:40] LABS: CALCIUM, IONIZED 1.15 mmol/L (1.15-1.33); VBG PH 7.461 (7.31-7.41)
[2023-01-24 04:51] LABS: CALCIUM 9.3 mg/dL (8.5-10.3); CREATININE 0.5 mg/dL (0.6-1.2); MAGNESIUM 1.9 mg/dL (1.7-2.8); PHOSPHORUS 5.7 mg/dL (2.5-4.6); POTASSIUM 3.2 mmol/L (3.5-5.0)
[2023-01-24] MEDS ORDERED: PANTOPRAZOLE 40 MG TABLET PO SCH (07:00)
[2023-01-24] MEDS ORDERED: POTASSIUM CHLORIDE 20 MEQ TABLET PO ONE (07:41)
[2023-01-24] MEDS ORDERED: INSULIN LISPRO 300 UNIT/3 ML PEN SUBQ SCH (08:00)
[2023-01-24] MEDS: INSULIN LISPRO 300 UNIT/3 ML PEN SUBQ SCH (08:08)
[2023-01-24] MEDS: INSULIN GLARGINE-YFGN 300 UNIT/3 ML PEN SUBQ SCH (08:08)
[2023-01-24] MEDS: SODIUM CHLORIDE FLUSH 0.9% 10 ML SYRINGE IVP SCH ×2 (08:09)
--- NOTE | 2023-01-24 10:12 | Discharge Plan ---
Discharge Plan Problem Reviewed?: Yes Disposition: Home, Self Care Condition: Fair Prescriptions: Insulin Glargine,Hum.rec.anlog [Insulin Glargine] 50 unit SQ DAILY 30 Days #15 ml Insulin Aspart [Novolog Flexpen] 20 unit SQ TIDWM 30 Days #8 each Diet: Diabetic Activity Restrictions: Activity as Tolerated Shower Restrictions: No Driving Restrictions: No Instruction Topics: Diabetes Sick Day Plan Health Concerns: You have been rationing your insulin due to financial concerns. Had you went into DKA. It took us a few days for you to be under control with an insulin drip in our intensive care unit. You are now under very good control and this morning your glucose was 86 before breakfast. Plan of Treatment: To resume your normal dose of Lantus vials and lispro pens without rationing. You have asked that I send the Rx to [facility] for these as well as glucometer strips. You have a listed WILL Davila who is with [facility], who is in [place]. You may have to see her temporarily until you can get connected with a local provider. But your plan is to be seen at [facility] and establish yourself with a primary care provider there. I have also given you the name of a provider there is a locomotive observer here in [place]. Care Goals: To achieve an A1c less than 6% on a regular basis. A1c was 9.1% with this admission. 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 Assessment: Patient is alert, oriented, understands sick day plan, and has registered with new insurance program to make sure he has access to his medication No Smoking: If you smoke, Please STOP! Call for help.
--- NOTE | 2023-01-24 10:44 | DISCHARGE SUMMARY ---
"Discharge Summary Admit Date: 01/17/23 Discharge Date: 01/24/23 Discharging Provider: Patricia Hogue MD Primary Care Provider: Trixie Eldridge NP [facility] Code Status: Attempt Resuscitation Condition at Discharge: Fair Discharge Disposition: 01 Home, Self Care - DIAGNOSES Discharge Diagnoses with Status of Each Condition: 1. Diabetic ketoacidosis, type I 2. Diabetes type 1, uncontrolled 3. Nausea and vomiting 4. Ileus 5. Patient noncompliance with medical treatment and regimen due to financial hardship - HPI History of Present Illness: This is a 22-year-old white male with a history of ADHD, who was weaned off his ADHD meds in his late teens, and has type 1 diabetes diagnosed at age 8. The patient has been trying to stretch out what insulin he has at home so that he does not run out, since his family lost their Health Insurance and he was waiting to start a job and have his own health insurance. Over the last 1-2 weeks he started to notice increased urination along with upper and R-sided abdominal pain and some nausea no vomiting and then he lost his appetite and was constipated, and himself was worried that he was starting to go into DKA. His abd pain felt worse today than the previous week and called an ambulance and was brought to the ER. He was found to be in DKA with a serum pH of 7.0, elevated lactic acid of 6.4, elevated anion gap of 33, and elevated glucose of 549. He was started on iv saline and an insulin drip. He underwent a CT of the abdomen which shows ileitis. The ED provider spoke to me regarding managing this young man going forward. The patient is being admitted to the ICU to manage DKA and ileitis. History - Past Medical History Cardiovascular: reports: None Respiratory: reports: None Neuro: reports: None Endocrine/Autoimmune: reports: Type 1 diabetes GI: reports: None : reports: None HEENT: reports: None Psych: reports: ADD/ADHD Musculoskeletal: reports: None Derm: reports: None MRSA Hx?: No - CONSULTS | PROCEDURES Procedures: Abdomen/pelvis CT done on January 17 and January 19. Small hiatal hernia. Enlarged fatty liver. Spleen normal. Accessory spleen noted along the hilum of the primary spleen. Mild prominence of proximal small bowel loops can be seen. Distal small bowel loops demonstrated normal caliber. On the first CT there is focal inflammation of the terminal ileum. On the second CT that had resolved. No free air or fluid. No retroperitoneal or mesenteric adenopathy. - HOSPITAL COURSE Hospital Course: After first being admitted to ICU, his serum ketones only became negative after 2.5 days of Insulin drip. Then he came out of the ICU, was started on Lantus nighttime dose plus a sliding scale of Insulin. Then he vomited overnight. The next morning he had (+) serum ketones again, and increased Anion Gap and he was transferred back to the ICU due to DKA developed again. After first being admitted to ICU, his serum ketones only became negative after 2.5 days of Insulin drip. Then he came out of the ICU, was started on Lantus nighttime dose plus a sliding scale of Insulin. Then he vomited overnight. The next morning labs showed (+) serum ketones again, and increased Anion Gap and he was transferred back to the ICU due to DKA developed again. He was on an insulin drip again. Anion gap closed. And he was transitioned to his Lantus and his short acting Humalog. The hospital sliding scale insulin is a much lower sliding scale than he uses at home. Our sliding scale would call for 5 or 6 units, but what he would take at home would be anywhere from 12 to 18 units. Once we started adjusting for what he does at home, his glucose became controlled. On the morning of discharge his glucose was 86 before breakfast. He is being discharged on his usual home doses of Lantus 35 units at night, 10 units in the morning. He would like prescriptions for vials called into [facility]. That was done. He takes up to 20 units before each meal of short acting humalog but he wanted [facility] called in for that. The only other Rx he wanted was glucose test strips and those were e-scribed in as well. At admission, he did have an elevated white count of 19.8 and 1 to 2 weeks of abd pain plus constipation. And the adm CT abd showed ileitis. Then with abd pain right after eating, we obtained a repeat CT imaging w/ oral and iv contrast, d/t concern for partial bowel obstruction. It showed an ileus, no further ileitis. The empiric IV Cipro and IV Flagyl were stopped and his WBC normalized. He was on Pepcid 20 IV twice daily prophylactic in the ICU, that was changed to Pepcid 20 p.o.BID on MedSurg. On that dose, he has had heartburn for 2 days so we changed to protonix IV then po for that problem. Patient admitted he was rationing his insulin in order to stretch it out until he had a job with health insurance that would pay part of the cost of insulin Social work informed the hospitalists that he was accepted onto [facility] and we have called in his Rx to [facility] with that in mind. He states he is going to establish himself here with our hospital community [facility]. I have also given him the name of a nurse practitioner who works here in [place] and is a field operations supervisor. The name of their office is [facility]. Discharge exam had a temperature of 36.9. Heart rate 77. Blood pressure 137/86. Respirations 20. 100% on room air. He is a tall young white male who looks stated age. Well-groomed, well-nourished. He is ambulating in the room without any assist and able to complete his activities of daily living including dressing, feeding, toileting. No ataxia or distress. He has been able to tolerate a carb controlled diet for 2 days now without any nausea, vomiting, or abdominal pain. Lungs are clear. Regular rate and rhythm. Abdomen is soft, nontender. Normal bowel sounds. Greater than 30 minutes was spent coordinating discharge and making sure the correct prescriptions were called into pharmacy, discussing his case with his mom who was in the room with him and I answered all their questions. . - ALLERGIES Allergies/Adverse Reactions: Allergies Allergy/AdvReac Type Severity Reaction Status Date / Time No Known Drug Allergies Allergy Verified 01/17/23 08:49 - MEDICATIONS Home Medications: Ambulatory Orders Medication Instructions Recorded Confirmed Blood Sugar Diagnostic [Glucose 1 each QID #120 strip 01/24/23 Test Strip] Insulin Aspart [Novolog Flexpen] 20 unit SQ TIDWM 30 Days #8 each 01/24/23 Insulin Glargine,Hum.rec.anlog 50 unit SQ DAILY 30 Days #15 ml 01/24/23 [Insulin Glargine] - LABS Result Diagrams: 01/21/23 05:05 01/24/23 04:15"
[2023-01-24 11:34] VITALS: BP 132/89
== END 2023-01-24 11:30 | disposition home or self-care (01) | DRG 638 ==
LOC: EDUNIT# → ED 08:37 → ICU 14:11 → MS2 01-20 16:06 → ICU 01-21 15:57 → MS2 01-23 19:32
PROVIDERS: ADMIT Internal Medicine; ATTEND Specialist
DX: E10.10 Type 1 diabetes mellitus with ketoacidosis without coma (principal); K56.7 Ileus, unspecified; Z79.4 Long term (current) use of insulin; K52.9 Noninfective gastroenteritis and colitis, unspecified; T38.3X6A Underdosing of insulin and oral hypoglycemic [antidiabetic] drugs, initial encounter; Z91.120 Patient's intentional underdosing of medication regimen due to financial hardship; F90.9 Attention-deficit hyperactivity disorder, unspecified type
CPT/HCPCS: 36415; 74177; 80048; 80053; 81001; 82009; 82330; 82803; 83036; 83605; 83690; 83735; 84100; 84132; 85025; 87040; 87640; 93005; 96361; 96374; 96375; 96376; 99285; 99291; A9270; J0131; J1170; J1815; J2765; Q9963; Q9967; 81003; 82947; 87086; 87150

== ENCOUNTER 2024-02-15 11:57 | Outpatient (CLI) | payer MEDICAID ==
[2024-02-15 18:03] LABS: BASOPHILS # (AUTO) 0.1 10^3/uL (0.0-0.1); EOSINOPHILS # (AUTO) 0.1 10^3/uL (0.0-0.7); EOSINOPHILS % (AUTO) 1.1 %; HCT - HEMATOCRIT 46.4 % (42.0-52.0); HGB - HEMOGLOBIN 15.9 g/dL (14.0-18.0); LYMPHOCYTES # (AUTO) 3.7 10^3/uL (1.5-3.5); LYMPHOCYTES % (AUTO) 52.4 %; MEAN CORPUSCULAR HGB CONC 34.3 g/dL (32.0-36.0); MEAN CORPUSCULAR VOLUME 87.5 fL (80.0-94.0); MEAN PLATELET VOLUME 10.1 fL (7.4-11.4); MONOCYTES # (AUTO) 0.4 10^3/uL (0.0-1.0); MONOCYTES % (AUTO) 5.4 %; NEUTROPHILS # (AUTO) 2.8 10^3/uL (1.5-6.6); PLT - PLATELET COUNT 355 10^3/uL (130-450); RED CELL DISTRIBUTION WIDTH 12.6 % (12.0-15.0)
[2024-02-15 18:18] LABS: CREATININE,URINE 165.6 mg/dL
[2024-02-15 18:21] LABS: MICROALBUMIN,URINE < 0.7 mg/dL
[2024-02-15 18:25] LABS: ALBUMIN 4.6 g/dL (3.2-5.5); ALBUMIN/GLOBULIN RATIO 1.6 (1.0-2.2); ALKALINE PHOSPHATASE 101 IU/L (42-121); ALT ALANINE AMINOTRANSFERASE 22 IU/L (10-60); AST ASPARTATE AMINOTRANSFERASE 17 IU/L (10-42); BILIRUBIN,TOTAL 0.5 mg/dL (0.2-1.0); BUN - BLOOD UREA NITROGEN 10 mg/dL (6-20); CALCIUM 10.4 mg/dL (8.5-10.3); CARBON DIOXIDE - CO2 28 mmol/L (21-32); CHLORIDE 102 mmol/L (101-111); CHOL/HDL RATIO 4.5 (<5.0); CHOLESTEROL 232 mg/dL; CREATININE 0.7 mg/dL (0.6-1.3); GFR - MDRD 139 (>89); GLUCOSE 130 mg/dL (74-104); HDL CHOLESTEROL 51 mg/dL; LDL CHOLESTEROL,CALCULATED 166 mg/dL; LDL/HDL RATIO 3.3 (<3.6); POTASSIUM 3.8 mmol/L (3.5-4.5); SODIUM 138 mmol/L (135-145); TOTAL PROTEIN 7.4 g/dL (6.4-8.9); TRIGLYCERIDES 73 mg/dL (48-352); VLDL CHOLESTEROL 15 mg/dL
[2024-02-15 21:06] LABS: ESTIMATED AVERAGE GLUCOSE 169 mg/dL (70-100); HEMOGLOBIN A1c% 7.5 % (4.27-6.07)
== END 2024-02-15 11:58 | disposition home or self-care (01) ==
LOC: LAB.N 11:57
PROVIDERS: ATTEND Physician Assistant
DX: E10.8 Type 1 diabetes mellitus with unspecified complications (principal); Z13.220 Encounter for screening for lipoid disorders
CPT/HCPCS: 36415; 80053; 80061; 82043; 82570; 83036; 83721; 85025